=== PATIENT | male | born 1955 | race African-American/Black ===

== ENCOUNTER 2016-12-30 09:47 | Emergency (ER) | payer MEDICARE, OTHER ==
[~2016-12-30] VITALS: Wt 70.2 kg
[~2016-12-30 09:47] MED LIST: ASPI81TA3 PO; THO25 PO
[2016-12-30] MEDS ORDERED: ONDANSETRON 4 MG INJ IV STA (10:02)
[2016-12-30] MEDS ORDERED: morphine 4 MG/ML VIAL IV STA (10:02)
[2016-12-30] MEDS ORDERED: SOD CHLORIDE 0.9% 1,000 ML IV STA (10:02)
[2016-12-30] MEDS ORDERED: CHLORPROMAZINE 25 MG INJ IM ONE (10:30)
[2016-12-30 10:32] LABS: ADD SCAN DIFF NO
[2016-12-30 10:46] LABS: ALBUMIN 4.6 g/dl (3.3-4.9); CHLORIDE 98 mmol/L (97-110); POTASSIUM 4.1 mmol/L (3.5-5.1); SODIUM 147 mmol/L (135-144)
[2016-12-30 10:47] LABS: BASOPHILS % 0.1 % (0.0-2.0); HEMATOCRIT 51.1 % (42.0-52.0); HEMOGLOBIN 16.9 g/dl (14.0-18.0); LYMPHOCYTES # 0.9 10^3/ul (0.8-2.9); LYMPHOCYTES % 8.8 % (15.0-51.0); MEAN CORPUSCULAR HEMOGLOBIN 28.7 pg (29.0-33.0); MEAN CORPUSCULAR HGB CONC 33.1 g/dl (32.0-37.0); MEAN CORPUSCULAR VOLUME 86.8 fl (82.0-101.0); MEAN PLATELET VOLUME 11.5 fl (7.4-10.4); MONOCYTES % 9.6 % (0.0-11.0); NEUTROPHIL # 8.3 10^3/ul (1.6-7.5); NEUTROPHILS % 81.1 % (39.0-77.0); PLATELET COUNT 218 10^3/UL (140-415); RED BLOOD COUNT 5.89 10^6/ul (4.70-6.10); RED CELL DISTRIBUTION WIDTH 14.6 % (11.5-14.5); WHITE BLOOD COUNT 10.2 10^3/ul (4.8-10.8)
[2016-12-30 10:48] LABS: CREATININE 1.42 mg/dl (0.61-1.24)
[2016-12-30 10:49] LABS: ALANINE AMINOTRANSFERASE 21 IU/L (13-69); ALBUMIN/GLOBULIN RATIO 1.12; ALKALINE PHOSPHATASE 82 IU/L (42-121); ANION GAP 19 (8-16); ASPARTATE AMINO TRANSFERASE 33 IU/L (15-46); BILIRUBIN,INDIRECT 0.4 mg/dl (0-1.1); BILIRUBIN,TOTAL 0.4 mg/dl (0.2-1.3); BLOOD UREA NITROGEN 19 mg/dl (7-20); CALCIUM 10.4 mg/dl (8.4-10.2); CARBON DIOXIDE 34 mmol/L (21-31); GLUCOSE 161 mg/dl (70-220); TOTAL PROTEIN 8.7 g/dl (6.1-8.1)
[2016-12-30 11:00] LABS: TROPONIN-I < 0.010 ng/ml (0.00-0.12)
--- NOTE | 2016-12-30 11:28 | RADRPT ---
PROCEDURE: US Abdomen. CLINICAL INDICATION: Abdominal pain. TECHNIQUE: Multiple real-time images were acquired of the patient's abdomen and retroperitoneum ut ilizing a high resolution transducer. COMPARISON: Abdominal sonogram 06/04/2013. FINDINGS: FLAIR identified right upper quadrant measuring 15 cm in length. It has a normal echo texture with normal flow in the hepatic and portal veins. There are multiple gallstones in the gallbladder. The gallbladder wall measured 1.2 mm and is normal. Common bile duct measures 5 mm. Inferior vena cav a is patent. The right kidney measures 11 cm in length. The left kidney is not visualized. No free intraperiton eal fluid is identified. The abdominal aorta is not evaluated. IMPRESSION: 1. Limited abdominal sonogram demonstrating multiple gallstones in the gallbladder. This finding is also noted on the prior CT of August 24, 2015. 2. Normal common bile duct and normal gallbladder wall thickness. RPTAT:AAJJ Physician Bethany Date Time Electronically viewed and signed by Physician Bethany on 12/30/2016 11:28 JOAQUIM/
[2016-12-30] MEDS ORDERED: HYDROmorphONE 1 MG/ML SYG IV STA (12:02)
[2016-12-30] MEDS ORDERED: ONDA4TAB14 PO (12:06)
[2016-12-30] MEDS ORDERED: HYDR-902 PO (12:06)
--- NOTE | 2016-12-30 12:08 | ERD ---
ER Documentation Chief Complaint Date/Time DATE: 12/30/16 TIME: 12:07 Chief Complaint abdominal pain and vomiting for the past 2 days. no diarrhea. HPI Patient is a 61-year-old male with previous cancer who presents saying that he has abdominal pain and "hiccups". He is having pain in the midepigastric area of his stomach. It started a few days ago and was constant and worsening. He has no fevers. He had vomiting but no diarrhea. Upon review of old medical records the patient has multiple visits to the ER for various complaints but review of the emergency department information exchange shows no other visits to our emergency departments. The patient says that his primary doctor is Dr. Lr. ROS All systems reviewed and are negative except as per history of present illness. Medications Home Meds Active Scripts Ondansetron (Ondansetron Odt) 4 Mg Tab.rapdis, 4 MG PO Q6H Y for NAUSEA AND/OR VOMITING, #30 TAB Prov:RICHELLE ULLOA MD 12/30/16 Hydrocodone/Acetaminophen ([place] 10-325 Tablet) 1 Each Tablet, 1 TAB PO Q6H Y for PAIN, #7 TAB Prov:RICHELLE ULLOA MD 12/30/16 Chlorpromazine Hcl* (Thorazine*) 25 Mg Tab, 25 MG PO TID, #6 TAB Prov:RICHELLE ULLOA MD 08/21/15 Reported Medications Aspirin* (Aspirin* Chew) 81 Mg Tab.chew, 81 MG PO DAILY, TAB.CHEW 08/24/15 Allergies Allergies: Coded Allergies: bleomycin (Verified Allergy, Severe, SEVERE SHIVERING, SHALLOW BREATHING , 08/24/15) THIS MEDICATION WAS TAKEND URING FIRST SESSION OF CHEMO PMhx/Soc History of Surgery: Yes (SPLENECTOMY [id number]) Anesthesia Reaction: No Hx Neurological Disorder: No Hx Respiratory Disorders: No Hx Psychiatric Problems: No Hx Miscellaneous Medical Probl: Yes (HODGKIN'S LYMPHOMA ) Hx Alcohol Use: Yes Hx Substance Use: No Hx Tobacco Use: Yes (7-8 CIGARETTES/DAY) Smoking Status: Current some day smoker FmHx Family History: No diabetes Physical Exam Vitals Vital Signs Date Time Temp Pulse Resp B/P Pulse Ox O2 Delivery O2 Flow Rate FiO2 12/30/16 12:28 98.4 85 16 138/86 100 Room Air 12/30/16 11:30 98.4 84 16 135/79 100 Room Air 12/30/16 09:53 98.4 80 21 129/85 99 Physical Exam Const: Mild distress secondary to pain, hiccups Head: Atraumatic Eyes: Normal Conjunctiva ENT: Normal External Ears, Nose and Mouth. Neck: Full range of motion..~ No meningismus. Resp: Clear to auscultation bilaterally Cardio: Regular rate and rhythm, no murmurs Abd: Soft, epigastric pain without rebound or guarding Skin: No petechiae or rashes Back: No midline or flank tenderness Ext: No cyanosis, or edema Neur: Awake and alert Psych: Normal Mood and Affect Result Diagram: 12/30/16 1030 12/30/16 1030 Results 24 hrs Laboratory Tests Test 12/30/16 10:30 Alanine Aminotransferase (ALT/SGPT) 21IU/L Albumin 4.6g/dl Albumin/Globulin Ratio 1.12 Alkaline Phosphatase 82IU/L Anion Gap 19 Aspartate Amino Transf (AST/SGOT) 33IU/L Basophils # 0.010^3/ul Basophils % 0.1% Blood Urea Nitrogen 19mg/dl Calcium Level 10.4mg/dl Carbon Dioxide Level 34mmol/L Chloride Level 98mmol/L Creatinine 1.42mg/dl Direct Bilirubin 0.00mg/dl Eosinophils # 0.010^3/ul Eosinophils % 0.0% Globulin 4.10g/dl Glucose Level 161mg/dl Hematocrit 51.1% Hemoglobin 16.9g/dl Indirect Bilirubin 0.4mg/dl Lipase 629U/L Lymphocytes # 0.910^3/ul Lymphocytes % 8.8% Mean Corpuscular Hemoglobin 28.7pg Mean Corpuscular Hemoglobin Concent 33.1g/dl Mean Corpuscular Volume 86.8fl Mean Platelet Volume 11.5fl Monocytes # 1.010^3/ul Monocytes % 9.6% Neutrophils # 8.310^3/ul Neutrophils % 81.1% Nucleated Red Blood Cells # 0.010^3/ul Nucleated Red Blood Cells % 0.0/100WBC Platelet Count 20706^3/UL Potassium Level 4.1mmol/L Red Blood Count 5.8910^6/ul Red Cell Distribution Width 14.6% Sodium Level 147mmol/L Total Bilirubin 0.4mg/dl Total Protein 8.7g/dl Troponin I < 0.010ng/ml White Blood Count 10.210^3/ul Current Medications Medications (Trade) Dose Ordered Sig/Servando Route PRN Reason Start Time Stop Time Status Last Admin Dose Admin Sodium Chloride (NS) 1,000 ml @ 1,000 mls/hr Q1H STAT IV 12/30/16 10:02 12/30/16 11:01 DC 12/30/16 10:16 Morphine Sulfate (morphine) 4 mg ONCE STAT IV 12/30/16 10:02 12/30/16 10:03 DC 12/30/16 10:16 Ondansetron HCl (Zofran Inj) 4 mg ONCE STAT IV 12/30/16 10:02 12/30/16 10:03 DC 12/30/16 10:16 Chlorpromazine (Thorazine) 25 mg ONCE ONCE IM 12/30/16 10:30 12/30/16 10:31 DC 12/30/16 11:00 Hydromorphone HCl (Dilaudid) 1 mg ONCE STAT IV 12/30/16 12:02 12/30/16 12:03 DC 12/30/16 12:10 Procedures/MDM EKG read by me: Rate/Rhythm: Regular rate and rhythm at a rate of 65 Intervals: Normal Impression: No evidence of ischemia or arrhythmia Ultrasound shows gallstones but no cholecystitis or dilated common bile duct per radiology. Smoking Cessation Therapy: Pt. was lectured for greater than 3 minutes on the health risks of continued smoking and the benefits of cessation. Patient is a 61-year-old male who presents with abdominal pain. His lipase was 600. His ultrasound shows gallstones but no signs of gallbladder infection or common bile duct dilatation. I doubt cholecystitis, appendicitis, bowel obstruction, or other serious etiology. I discussed admission with the patient but he would prefer to go home. He will be given [place] and Zofran. He can return for any worsening symptoms. Departure Diagnosis: Primary Impression: Hiccups Additional Impression: Abdominal pain Abdominal location: unspecified location Qualified Code: R10.9 - Abdominal pain, unspecified location Condition: Fair Patient Instructions: Abdominal Pain Additional Instructions: FOLLOW UP WITH YOUR PRIMARY CARE PHYSICIAN TOMORROW.Return to this facility if you are not improving as expected. RICHELLE ULLOA MD Dec 30, 2016 12:08
[2016-12-30 12:28] VITALS: BP 138/86; PULSE 85; RESP 16; TEMP 98.4
== END 2016-12-30 12:51 | disposition home or self-care (01) ==
LOC: E/R 09:47
DX: R06.6 Hiccough (principal); F17.210 Nicotine dependence, cigarettes, uncomplicated; R11.10 Vomiting, unspecified; Z79.82 Long term (current) use of aspirin
CPT/HCPCS: 36415; 76705; 80053; 83690; 84484; 85025; 93005; 96372; 96374; 96375; 99285; J1170; J2270; J2405; J3230; J7030

== ENCOUNTER 2016-12-31 10:33 | Inpatient (IN) | payer MEDICARE, OTHER ==
[~2016-12-31] VITALS: Ht 177.8 cm; Wt 62.6 kg
[~2016-12-31 10:33] MED LIST changes: +HYDR-902 PO; +ONDA4TAB14 PO
[2016-12-31] MEDS ORDERED: SOD CHLORIDE 0.9% 1,000 ML IV STA (11:10)
[2016-12-31] MEDS ORDERED: HYDROmorphONE 1 MG/ML SYG IV STA (11:10)
[2016-12-31] MEDS ORDERED: ONDANSETRON 4 MG INJ IV STA (11:10)
[2016-12-31] MEDS ORDERED: CHLORPROMAZINE 25 MG INJ IM ONE (11:30)
[2016-12-31 11:50] LABS: ADD SCAN DIFF NO
[2016-12-31 11:57] LABS: BASOPHILS % 0.3 % (0.0-2.0); EOSINOPHILS % 0.2 % (0.0-7.0); HEMATOCRIT 55.5 % (42.0-52.0); HEMOGLOBIN 18.4 g/dl (14.0-18.0); LYMPHOCYTES # 1.3 10^3/ul (0.8-2.9); MEAN CORPUSCULAR HGB CONC 33.2 g/dl (32.0-37.0); MEAN CORPUSCULAR VOLUME 87.5 fl (82.0-101.0); MEAN PLATELET VOLUME 12.1 fl (7.4-10.4); MONOCYTES % 11.8 % (0.0-11.0); NEUTROPHIL # 6.3 10^3/ul (1.6-7.5); NEUTROPHILS % 72.4 % (39.0-77.0); PLATELET COUNT 211 10^3/UL (140-415); RED BLOOD COUNT 6.34 10^6/ul (4.70-6.10); RED CELL DISTRIBUTION WIDTH 15.6 % (11.5-14.5); WHITE BLOOD COUNT 8.8 10^3/ul (4.8-10.8)
[2016-12-31] MEDS ORDERED: ACETAMINOPHEN 325 MG TAB PO PRN (12:00)
[2016-12-31] MEDS ORDERED: ONDANSETRON 4 MG INJ IV PRN ×2 (12:00→15:30)
[2016-12-31 12:09] LABS: POTASSIUM 4.8 mmol/L (3.5-5.1)
[2016-12-31 12:10] LABS: CREATININE 1.53 mg/dl (0.61-1.24)
[2016-12-31 12:11] LABS: ALBUMIN/GLOBULIN RATIO 1.02; BILIRUBIN,INDIRECT 0.3 mg/dl (0-1.1); BILIRUBIN,TOTAL 0.3 mg/dl (0.2-1.3); CALCIUM 10.6 mg/dl (8.4-10.2); TOTAL PROTEIN 9.9 g/dl (6.1-8.1)
--- NOTE | 2016-12-31 12:43 | ERA ---
ER Documentation Chief Complaint Date/Time DATE: 12/31/16 TIME: 12:41 Chief Complaint NAUSEA /VOMITING /ABD PAIN X 3 DAYS HPI Patient is a 61-year-old male with history of pancreatitis who presents with abdominal pain and epigastric pain. He also has hiccups. He has vomiting. He has no fevers. I saw him yesterday for the same complaint and his lipase yesterday was 600. We spoke about admission at that time and he wanted to go home so he was discharged. However he said "I should not have gone home I should have stayed and been admitted". The pain is sharp in nature and constant. ROS All systems reviewed and are negative except as per history of present illness. Medications Home Meds Active Scripts Ondansetron (Ondansetron Odt) 4 Mg Tab.rapdis, 4 MG PO Q6H Y for NAUSEA AND/OR VOMITING, #30 TAB Prov:RICHELLE ULLOA MD 12/30/16 Hydrocodone/Acetaminophen ([place] 10-325 Tablet) 1 Each Tablet, 1 TAB PO Q6H Y for PAIN, #7 TAB Prov:RICHELLE ULLOA MD 12/30/16 Chlorpromazine Hcl* (Thorazine*) 25 Mg Tab, 25 MG PO TID, #6 TAB Prov:RICHELLE ULLOA MD 08/21/15 Reported Medications Aspirin* (Aspirin* Chew) 81 Mg Tab.chew, 81 MG PO DAILY, TAB.CHEW 08/24/15 Allergies Allergies: Coded Allergies: bleomycin (Verified Allergy, Severe, SEVERE SHIVERING, SHALLOW BREATHING , 08/24/15) THIS MEDICATION WAS TAKEND URING FIRST SESSION OF CHEMO PMhx/Soc History of Surgery: Yes (SPLENECTOMY [id number]) Anesthesia Reaction: No Hx Neurological Disorder: No Hx Respiratory Disorders: No Hx Psychiatric Problems: No Hx Miscellaneous Medical Probl: Yes (HODGKIN'S LYMPHOMA ) Hx Alcohol Use: Yes Hx Substance Use: No Hx Tobacco Use: Yes (7-8 CIGARETTES/DAY) Smoking Status: Smoker,current status unk FmHx Family History: No diabetes Physical Exam Vitals Vital Signs Date Time Temp Pulse Resp B/P Pulse Ox O2 Delivery O2 Flow Rate FiO2 12/31/16 10:45 98.5 58 18 144/85 98 Physical Exam Const: Moderate distress secondary to pain Head: Atraumatic Eyes: Normal Conjunctiva ENT: Normal External Ears, Nose and Mouth. Neck: Full range of motion..~ No meningismus. Resp: Clear to auscultation bilaterally Cardio: Regular rate and rhythm, no murmurs Abd: Soft, epigastric tenderness to palpation without rebound or guarding Skin: No petechiae or rashes Back: No midline or flank tenderness Ext: No cyanosis, or edema Neur: Awake and alert Psych: Normal Mood and Affect Result Diagram: 12/31/16 1105 12/31/16 1105 Results 24 hrs Laboratory Tests Test 12/31/16 11:05 Alanine Aminotransferase (ALT/SGPT) 28IU/L Albumin 5.0g/dl Albumin/Globulin Ratio 1.02 Alkaline Phosphatase 104IU/L Anion Gap 24 Aspartate Amino Transf (AST/SGOT) 34IU/L Basophils # 0.010^3/ul Basophils % 0.3% Blood Urea Nitrogen 23mg/dl Calcium Level 10.6mg/dl Carbon Dioxide Level 36mmol/L Chloride Level 94mmol/L Creatinine 1.53mg/dl Direct Bilirubin 0.00mg/dl Eosinophils # 0.010^3/ul Eosinophils % 0.2% Globulin 4.90g/dl Glucose Level 134mg/dl Hematocrit 55.5% Hemoglobin 18.4g/dl Indirect Bilirubin 0.3mg/dl Lipase 364U/L Lymphocytes # 1.310^3/ul Lymphocytes % 15.0% Mean Corpuscular Hemoglobin 29.0pg Mean Corpuscular Hemoglobin Concent 33.2g/dl Mean Corpuscular Volume 87.5fl Mean Platelet Volume 12.1fl Monocytes # 1.010^3/ul Monocytes % 11.8% Neutrophils # 6.310^3/ul Neutrophils % 72.4% Nucleated Red Blood Cells # 0.010^3/ul Nucleated Red Blood Cells % 0.0/100WBC Platelet Count 44673^3/UL Potassium Level 4.8mmol/L Red Blood Count 6.3410^6/ul Red Cell Distribution Width 15.6% Sodium Level 149mmol/L Total Bilirubin 0.3mg/dl Total Protein 9.9g/dl White Blood Count 8.810^3/ul Current Medications Medications (Trade) Dose Ordered Sig/Servando Route PRN Reason Start Time Stop Time Status Last Admin Dose Admin Sodium Chloride (NS) 1,000 ml @ 1,000 mls/hr Q1H STAT IV 12/31/16 11:10 12/31/16 12:09 DC 12/31/16 11:34 Hydromorphone HCl (Dilaudid) 1 mg ONCE STAT IV 12/31/16 11:10 12/31/16 11:12 DC 12/31/16 11:34 Ondansetron HCl (Zofran Inj) 4 mg ONCE STAT IV 12/31/16 11:10 12/31/16 11:12 DC 12/31/16 11:34 Chlorpromazine (Thorazine) 25 mg ONCE ONCE IM 12/31/16 11:30 12/31/16 11:31 DC 12/31/16 11:55 Ondansetron HCl (Zofran Inj) 4 mg BRIDGE ORDER PRN IV NAUSEA AND/OR VOMITING 12/31/16 12:00 01/01/17 11:59 Acetaminophen (Tylenol Tab) 650 mg ER BRIDGE PRN PO MILD PAIN/FEVER 12/31/16 12:00 01/01/17 11:59 Procedures/MDM Patient is a 61-year-old male with pancreatitis who presents with acute abdominal pain. The patient has slightly elevated lipase of over 300 and his symptoms are consistent with acute pancreatitis. The patient will be given Dilaudid, Zofran, and Thorazine. He will be admitted to Dr. Lr who is the primary doctor. The patient will be admitted to a medical surgical bed. He has failed outpatient treatment at this time. I do believe that inpatient admission would be appropriate given the fact that he has not been able to be managed at an outpatient level of care. Departure Diagnosis: Primary Impression: Abdominal pain Qualified Code: R10.13 - Epigastric pain Condition: RICHELLE Leavitt MD Dec 31, 2016 12:42
[2016-12-31 14:24] VITALS: Ht 177.8 cm; Wt 62.6 kg
[2016-12-31 14:54] VITALS: BP_SYST 163; BP_SYST 165; BP_DIAS 82; PULSE 52; RESP 18
[2016-12-31] MEDS: HYDROmorphONE 1 MG/ML SYG IV PRN ×2 (15:38→20:15)
[2016-12-31] MEDS: SOD CHLORIDE 0.45% 1,000 ML IV SCH (15:38)
[2016-12-31] MEDS: VALSARTAN 80 MG TAB PO SCH (15:45)
[2016-12-31 20:03] VITALS: BP 152/74; RESP 21
[2016-12-31 20:30] VITALS: PULSE 56
[2016-12-31] MEDS: CHLORPROMAZINE 25 MG TAB PO PRN (22:41)
[2017-01-01] MEDS: SOD CHLORIDE 0.45% 1,000 ML IV SCH ×5 (00:18→21:11)
[2017-01-01] MEDS: HYDROmorphONE 1 MG/ML SYG IV PRN ×6 (00:18→21:12)
[2017-01-01] MEDS: CHLORPROMAZINE 25 MG TAB PO PRN ×2 (05:10→21:16)
[2017-01-01 07:33] VITALS: BP 124/67; RESP 18
[2017-01-01] MEDS: VALSARTAN 80 MG TAB PO SCH (08:39)
[2017-01-01] MEDS ORDERED: hydrALAzine 20 MG INJ IV PRN (09:00)
[2017-01-01] MEDS: PANTOPRAZOLE 40 MG INJ IV SCH (10:26)
[2017-01-01] MEDS ORDERED: CHLORPROMAZINE 25 MG INJ IM PRN (10:30)
--- NOTE | 2017-01-01 10:41 | HP ---
DATE OF ADMISSION: 12/31/2016 CHIEF COMPLAINT: Abdominal pain and hiccups. HISTORY OF PRESENT ILLNESS: The patient is a 61-year-old gentleman with history of hypertension, re current pancreatitis, Hodgkin's disease status post splenectomy and chemotherapy, history of esophag opleural fistula. The patient came to the ER with upper abdominal pain, vomiting and hiccups. The patient did not have any fever or chills, no reported chest pain, shortness of breath. The patient also had nausea. The patient did not have any leg pain. No reported hematemesis or melena. No his tory of headache, dizziness, syncope. No history of cough. The patient did not have any abdominal distention. The patient was seen in the ER and reported the pain was moderate to severe in upper ab domen and was constant and was progressively getting worse. The patient in fact was seen in the ER on 12/30/2016 and was discharged. Upper abdominal ultrasound was negative. The patient's lipase w as 600. The patient at that time wanted to go home on symptomatic treatment including Narcan and Zo bernard; however, he returned to ER on the to December with similar symptoms and lab evaluation r evealed lipase of 364. Liver enzymes were normal. The patient had a BUN of 23, creatinine 1.5 up f rom 19 and 1.4 the day before. The patient is being admitted for further evaluation and management. REVIEW OF SYSTEMS: A total of 10 systems were reviewed and all other pertinent positive and negativ e findings have been described in the HPI. PAST MEDICAL HISTORY: As stated above. 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 The patient's initial diagnosis of Hodgkin's disease was in 1995 when he presented with left parotid area swelling which was subsequently biopsi ed and the patient was diagnosed with Hodgkin's lymphoma. The patient subsequently underwent chemot herapy and was found to be ALLERGIC TO BLEOMYCIN. Questionable history of atrial fibrillation in past. The patient was seen by . PAST SURGICAL HISTORY: The patient has history of loculated left-sided pleural effusion and empyema status post VATS and total pulmonary decortication by Dr. Katz. History of ERCP, sphincteroto my and placement of a pancreatic duct stent and common bile duct stent in October 2009. ALLERGIES: BLEOMYCIN. SOCIAL HISTORY: The patient works for [employer]. No smoking. The patient has history of drinking channing in the past but quit in 2008. PHYSICAL EXAMINATION: GENERAL: The patient is conscious, awake, alert. VITAL SIGNS: Temperature 98.5, pulse 58, respirations 18, blood pressure 144/85, O2 saturation 98% on room air. HEENT: Atraumatic, normocephalic. Conjunctivae and lids normal. Oropharynx clear. NECK: Supple. No mass, no thyromegaly. LUNGS: Clear to auscultation. CARDIOVASCULAR: S1, S2 normal. Regular rate and rhythm. No murmur, gallop, or rub. ABDOMEN: Soft, nondistended. Upper abdominal tenderness present. No guarding or rigidity. Bowel sounds present. EXTREMITIES: No leg edema. NEUROLOGIC: The patient is awake, alert, fairly oriented with no gross focal deficit. IMPRESSION: 1. Gallstone pancreatitis. The patient's ultrasound of the gallbladder did reveal multiple gallsto josh in the gallbladder. 2. Hodgkin's lymphoma, status post splenectomy and video-assisted thoracoscopic surgery and total p ulmonary decortication for loculated empyema back in 2009. 3. Chronic kidney disease. The patient's creatinine is close to baseline. Back in 2014 the patien t's creatinine was .6. 4. Mild hypercalcemia. Calcium 10.6. 5. History of hypertension. PLAN: the patient will be admitted on medical floor. The patient is not vomiting and was feeling h ungry, therefore clear liquid diet was started. The patient will be given IV fluids, IV Protonix an d symptomatic treatment. Will continue to monitor his electrolytes and renal function. The patient does not want to see any leadership development consultant including animal care supervisor or even a GI. Dr. Lr did call Dr. Bhavik rodriguez. The patient was supposed to have labs today, but refused. Continue supportive care and sympt omatic treatment including Thorazine for hiccups. In view of history of recurrent pancreatitis, the patient was advised to see a surgeon for elective laparoscopic cholecystectomy. Will continue to m onitor calcium level. Again, the patient does not want to see any leadership development consultant at this time. Dictated By: TRENA SHORT/TRACEE Conf#: [id number] [facility]#: [id number]
--- NOTE | 2017-01-01 10:57 | CONS ---
Date/Time of Note Date/Time of Note DATE: 01/01/17 TIME: 10:37 Assessment/Plan Assessment/Plan Additional Assessment/Plan its not unususal to to have chronic pancreatitis w hiccups he had 2 doses of thorozine w//o a response I would continue w thorozine in current doses cont ppi cont hydration will follow will check hh and lytes and recheck lipase Consultation Date/Type/Reason Admit Date/Time Dec 31, 2016 at 11:52 Reason for Consultation hiccups Hx of Present Illness this is a 61 yo male w hx chronic pancreatitis admitted w hiccups and mildly elevated lipase he denies abd pain,rad to back he did have greenemesis x 2 Thorazine given in ER did not help pt came back to ER and was admitted denies hemetemesis melena apainrad to bck lipase 460~ u/s gb stones mildly dilated pancreatic duct he deneies etoh denies drug use or abd dtrauma serum lipids pending exaam: Heent mild bitemporal wasting JUDSON chest Clear [employer] ABD soft mildly tender no masses ext no edema Social History Smoking Status: Current every day smoker Exam/Review of Systems Vital Signs Vitals Vital Signs Date Time Temp Pulse Resp B/P Pulse Ox O2 Delivery O2 Flow Rate FiO2 01/01/17 07:33 97.5 61 18 124/67 98 12/31/16 14:54 Room Air Intake and Output 12/31/16 12/31/16 01/01/17 15:00 23:00 07:00 Intake Total 100 ml 2920 ml Balance 100 ml 2920 ml Results Result Diagram: 12/31/16 1105 12/31/16 1105 Results 24 hrs Laboratory Tests Test 12/31/16 11:05 Alanine Aminotransferase (ALT/SGPT) 28 Albumin 5.0 H Albumin/Globulin Ratio 1.02 Alkaline Phosphatase 104 Anion Gap 24 H Aspartate Amino Transf (AST/SGOT) 34 Basophils # 0.0 Basophils % 0.3 Blood Urea Nitrogen 23 H Calcium Level 10.6 H Carbon Dioxide Level 36 H Chloride Level 94 L Creatinine 1.53 H Direct Bilirubin 0.00 Eosinophils # 0.0 Eosinophils % 0.2 Globulin 4.90 H Glucose Level 134 Hematocrit 55.5 H Hemoglobin 18.4 H Indirect Bilirubin 0.3 Lipase 364 H Lymphocytes # 1.3 Lymphocytes % 15.0 Mean Corpuscular Hemoglobin 29.0 Mean Corpuscular Hemoglobin Concent 33.2 Mean Corpuscular Volume 87.5 Mean Platelet Volume 12.1 H Monocytes # 1.0 H Monocytes % 11.8 H Neutrophils # 6.3 Neutrophils % 72.4 Nucleated Red Blood Cells # 0.0 Nucleated Red Blood Cells % 0.0 Platelet Count 211 Potassium Level 4.8 Red Blood Count 6.34 H Red Cell Distribution Width 15.6 H Sodium Level 149 H Total Bilirubin 0.3 Total Protein 9.9 H White Blood Count 8.8 Medications Medications Current Medications Hydromorphone HCl (Dilaudid) 1 mg Q4H PRN IV PAIN Last administered on 08:39; Admin Dose 1 MG; Start 12/31/16 at 15:30 Chlorpromazine (Thorazine) 25 mg Q6H PRN PO hiccups Last administered on 05:10; Admin Dose 25 MG; Start 12/31/16 at 15:30 Ondansetron HCl 4 mg 4 mg Q4H PRN IV NAUSEA AND/OR VOMITING; Start 12/31/16 at 15:30 Sodium Chloride (1/2 NS) 1,000 ml @ 200 mls/hr Q5H IV Last administered on 10:29; Admin Dose 200 MLS/HR; Start 12/31/16 at 15:30 Pantoprazole (Protonix Iv) 40 mg DAILY@06 IV Last administered on 01/01/17 10: 26; Admin Dose 40 MG; Start 01/01/17 at 09:30 Hydralazine HCl (Apresoline) 10 mg Q4H PRN IV SBP>160, DBP >95; Start 01/01/17 at 09:00 Chlorpromazine (Thorazine) 25 mg Q6 PRN IM HICCUPS; Start 01/01/17 at 10:30; Status DEBI PÉREZ MD Jan 01, 2017 10:47
[2017-01-01 16:00] VITALS: BP 147/83; PULSE 59; RESP 18
[2017-01-01 22:24] VITALS: BP 120/70; RESP 20
[2017-01-02] MEDS: HYDROmorphONE 1 MG/ML SYG IV PRN ×6 (01:37→23:09)
[2017-01-02] MEDS: SOD CHLORIDE 0.45% 1,000 ML IV SCH ×2 (01:39→05:46)
[2017-01-02 05:29] LABS: ADD SCAN DIFF NO
[2017-01-02 05:38] LABS: BASOPHILS % 0.4 % (0.0-2.0); EOSINOPHILS # 0.1 10^3/ul (0.0-0.5); EOSINOPHILS % 0.9 % (0.0-7.0); HEMATOCRIT 44.8 % (42.0-52.0); HEMOGLOBIN 14.8 g/dl (14.0-18.0); LYMPHOCYTES # 1.5 10^3/ul (0.8-2.9); LYMPHOCYTES % 16.7 % (15.0-51.0); MEAN CORPUSCULAR HEMOGLOBIN 29.1 pg (29.0-33.0); MEAN CORPUSCULAR VOLUME 88.2 fl (82.0-101.0); MEAN PLATELET VOLUME 11.6 fl (7.4-10.4); MONOCYTE # 1.1 10^3/ul (0.3-0.9); MONOCYTES % 12.6 % (0.0-11.0); NEUTROPHIL # 6.2 10^3/ul (1.6-7.5); PLATELET COUNT 193 10^3/UL (140-415); RED BLOOD COUNT 5.08 10^6/ul (4.70-6.10); RED CELL DISTRIBUTION WIDTH 14.4 % (11.5-14.5)
[2017-01-02] MEDS: PANTOPRAZOLE 40 MG INJ IV SCH (05:41)
[2017-01-02] MEDS: CHLORPROMAZINE 25 MG TAB PO PRN ×2 (05:42→15:36)
[2017-01-02 05:52] LABS: ALBUMIN 3.2 g/dl (3.3-4.9)
[2017-01-02 05:53] LABS: POTASSIUM 3.3 mmol/L (3.5-5.1)
[2017-01-02 05:55] LABS: ALBUMIN/GLOBULIN RATIO 1.03; BILIRUBIN,INDIRECT 0.7 mg/dl (0-1.1); BILIRUBIN,TOTAL 0.7 mg/dl (0.2-1.3); CREATININE 1.15 mg/dl (0.61-1.24); TOTAL PROTEIN 6.3 g/dl (6.1-8.1)
[2017-01-02 05:56] LABS: CALCIUM 7.6 mg/dl (8.4-10.2)
[2017-01-02 09:37] VITALS: BP 118/72; RESP 18
[2017-01-02] MEDS: D5W-0.45 NACL + KCL 30 MEQ 1,000 ML IV SCH ×2 (12:19→23:12)
--- NOTE | 2017-01-02 13:44 | PN ---
DATE: 01/02/2017 SUBJECTIVE: Follow up on hypertension, acute pancreatitis, gallstone with history of alcohol abuse in the past, and acute kidney injury. The patient reported improvement in the pain; however, contin ues to have intermittent hiccups. The patient has required 2 doses of IV Dilaudid since last midnig ht. No reported fever or chills. No reported vomiting. PHYSICAL EXAMINATION: GENERAL: The patient is conscious, awake, alert. VITAL SIGNS: Temperature 98.3, pulse is 52, respirations 18, blood pressure 118/72, O2 saturation 1 00% on room air. HEENT: Conjunctivae and lids normal. Oropharynx clear. NECK: No mass, no JVD. CHEST: Fairly clear. No use of accessory muscles. CARDIOVASCULAR: S1, S2 normal. No murmur. ABDOMEN: Soft, nondistended. Diminished tenderness. No guarding or rigidity. Bowel sounds presen t. EXTREMITIES: No leg edema. NEUROLOGIC: The patient is awake, alert, fairly oriented with no gross focal deficit. LABORATORY DATA: WBC 9, hemoglobin 14.8, platelets 193. Sodium 134, potassium 3.3, BUN 15, creatin ine 1.1 down from 1.5. IMPRESSION: 1. Recurrent pancreatitis related to gallstones versus a history of alcohol abuse in the past, impr oving. Will advance diet today and will decrease IV fluid rate. Acute kidney injury has significan tly improved. Patient was offered a surgical consult for his gallstone; however, he refuses to see a surgeon at this time, and I recommended him to get a surgical consult as an outpatient from his PM D, . 2. Hypertension. Patient's blood pressure well controlled. The patient remains off antihypertensi ves. 3. Acute kidney injury, improved. 4. Hypokalemia. Will replace potassium and do followup labs in the morning. If patient is able to tolerate diet and has no other any acute event, he will be discharged home tomorrow. Lipase this m orning is down to 85. All liver enzymes are within normal limits with AST 31, ALT 25, and alkaline p hosphatase 66. Dictated By: TRENA SHORT/TRACEE Conf#: [id number] DID#: [id number]
--- NOTE | 2017-01-02 14:06 | CONS ---
Date/Time of Note Date/Time of Note DATE: 01/02/17 TIME: 13:59 Assessment/Plan Assessment/Plan Chief Complaint/Hosp Course this is a 61 yo male w hx chronic pancreatitis admitted w hiccups and mildly elevated lipase he denies abd pain,rad to back he did have greenemesis x 2 Thorazine given in ER did not help pt came back to ER and was admitted denies hemetemesis melena apainrad to bck lipase 460~ u/s gb stones mildly dilated pancreatic duct he deneies etoh denies drug use or abd dtrauma serum lipids pending Problems: Additional Assessment/Plan hiccups gone no abd pain lipase now nl From GI standpoint can be discharges Cont'd Hospitalization Reason: will see PRN thanks Consultation Date/Type/Reason Admit Date/Time Dec 31, 2016 at 11:52 Initial Consult Date 24 HR Interval Summary Free Text/Dictation no abd pain Constitutional: no complaints Exam/Review of Systems Vital Signs Vitals Vital Signs Date Time Temp Pulse Resp B/P Pulse Ox O2 Delivery O2 Flow Rate FiO2 01/02/17 09:37 98.3 52 18 118/72 100 12/31/16 14:54 Room Air Intake and Output 01/01/17 01/01/17 01/02/17 15:00 23:00 07:00 Intake Total 3780 ml 2150 ml Balance 3780 ml 2150 ml Exam Eyes: PERRL, No icteric Cardiovascular: nl pulses, regular rate and rhythm Gastrointestinal: non-tender, soft Results Result Diagram: 01/02/17 0415 01/02/17 0415 Results 24 hrs Laboratory Tests Test 01/02/17 04:15 Alanine Aminotransferase (ALT/SGPT) 25 Albumin 3.2 #L Albumin/Globulin Ratio 1.03 Alkaline Phosphatase 66 Amylase Level 102 Anion Gap 13 # Aspartate Amino Transf (AST/SGOT) 31 Basophils # 0.0 Basophils % 0.4 Blood Urea Nitrogen 15 Calcium Level 7.6 L Carbon Dioxide Level 30 Chloride Level 94 L Creatinine 1.15 Direct Bilirubin 0.00 Eosinophils # 0.1 Eosinophils % 0.9 Globulin 3.10 Glucose Level 95 Hematocrit 44.8 Hemoglobin 14.8 Indirect Bilirubin 0.7 Lipase 85 Lymphocytes # 1.5 Lymphocytes % 16.7 Mean Corpuscular Hemoglobin 29.1 Mean Corpuscular Hemoglobin Concent 33.0 Mean Corpuscular Volume 88.2 Mean Platelet Volume 11.6 H Monocytes # 1.1 H Monocytes % 12.6 H Neutrophils # 6.2 Neutrophils % 69.0 Nucleated Red Blood Cells # 0.0 Nucleated Red Blood Cells % 0.0 Platelet Count 193 Potassium Level 3.3 L Red Blood Count 5.08 Red Cell Distribution Width 14.4 Sodium Level 134 #L Total Bilirubin 0.7 Total Protein 6.3 # White Blood Count 9.0 Medications Medications Current Medications Hydromorphone HCl (Dilaudid) 1 mg Q4H PRN IV PAIN Last administered on 10:00; Admin Dose 1 MG; Start 12/31/16 at 15:30 Chlorpromazine (Thorazine) 25 mg Q6H PRN PO hiccups Last administered on 05:42; Admin Dose 25 MG; Start 12/31/16 at 15:30 Ondansetron HCl (Zofran Inj) 4 mg Q4H PRN IV NAUSEA AND/OR VOMITING; Start at 15:30 Pantoprazole (Protonix Iv) 40 mg DAILY@06 IV Last administered on 01/02/17 05: 41; Admin Dose 40 MG; Start 01/01/17 at 09:30 Hydralazine HCl (Apresoline) 10 mg Q4H PRN IV SBP>160, DBP >95; Start 01/01/17 at 09:00 Chlorpromazine 25 mg 25 mg Q6 PRN IM HICCUPS Last administered on 01/01/17 14: 38; Admin Dose 25 MG; Start 01/01/17 at 10:30 Potassium Chloride/Dextrose/ Sod Cl (D5-1/2ns + KCl 30 Meq) 1,000 ml @ 100 mls/ hr Q10H IV Last administered on 01/02/17 12:19; Admin Dose 100 MLS/HR; Start 01/02/17 at 10:30 DEBI GARCIA MD Jan 02, 2017 14:06
[2017-01-02 20:00] VITALS: BP 134/74; RESP 19
[2017-01-03] MEDS: CHLORPROMAZINE 25 MG TAB PO PRN ×2 (01:01→12:47)
[2017-01-03] MEDS: HYDROmorphONE 1 MG/ML SYG IV PRN ×3 (03:15→11:12)
[2017-01-03] MEDS: PANTOPRAZOLE 40 MG INJ IV SCH (05:18)
[2017-01-03 06:01] LABS: POTASSIUM 3.7 mmol/L (3.5-5.1)
[2017-01-03 06:04] LABS: CALCIUM 7.4 mg/dl (8.4-10.2); CREATININE 0.99 mg/dl (0.61-1.24)
[2017-01-03 08:22] VITALS: BP 119/71; RESP 18
[2017-01-03] MEDS: D5W-0.45 NACL + KCL 30 MEQ 1,000 ML IV SCH (09:28)
--- NOTE | 2017-01-03 12:50 | PDOCDIS ---
Discharge Instructions CONDITION Patient Condition: Good HOME CARE INSTRUCTIONS: Diet Instructions: Low Fat /CholesterolSpecial Diet: Regular ACTIVITY: Activity Restrictions: No Restrictions FOLLOW UP/APPOINTMENTS Appointments Dr. HALL in 1-2 weeks With his oncologist as before TRENA LIZARRAGA MD Jan 03, 2017 12:49
--- NOTE | 2017-01-04 00:39 | DS ---
DATE OF ADMISSION: 12/31/2016 DATE OF DISCHARGE: 01/03/2017 DISCHARGE DIAGNOSES: 1. Recurrent pancreatitis due to possible gallstone versus a history of alcohol abuse in the past l eading to alcoholic pancreatitis. 2. Hodgkin lymphoma. 3. Chronic kidney disease. Creatinine improved from 1.42 upon admission down to 0.9. Most likely, patient has only acute kidney injury from recurrent vomiting due to acute pancreatitis. DISCHARGE MEDICATIONS: The patient prior to admission was taking baby aspirin and [place]. I have ad vised him to continue those medications. 1. Aspirin 81 mg once a day. 2. [place] 10/325 q.6 p.r.n. which was recently dispensed from ER. FOLLOWUP: The patient to follow up with Dr. Lr in 1 to 2 weeks. The patient was also recommended to request a general surgery referral for possible laparoscopic cholecystectomy. The patient to fol low up with his oncologist as before. CONSULTATION OBTAINED: Dr. Ridley PROCEDURE DONE: Ultrasound of the abdomen. REASON FOR ADMISSION: The patient is a 61-year-old gentleman with a history of pancreatitis in the past; history of alcohol abuse; history of hypertension; history of Hodgkin lymphoma, status post sp lenectomy and chemotherapy; history of VATS due to loculated pleural effusion. The patient came to ER with abdominal pain and vomiting, also had hiccups. The patient was started on IV fluid and was initially kept n.p.o., then subsequently started on clear liquid diet. The patient's initial lipase was 629. The patient was also given IV Dilaudid for pain control. The patient was seen by Dr. Leticia field from GI standpoint. Meanwhile, the patient had a gallbladder ultrasound which revealed multip le gallstones. Common bile duct, however, was normal. Gallbladder wall thickness was normal. The patient slowly improved. The patient's diet was advanced to regular diet, and the patient has been able to tolerate diet. Abdominal pain has improved, and the patient does not have any vomiting. No reported chest pain or shortness of breath. PHYSICAL EXAMINATION: VITAL SIGNS THIS MORNING: Blood pressure 119/71, pulse 95, respirations 18, temperature 98.2, O2 sa turation 100% on room air. HEENT: No eye discharge, redness. Oropharynx clear. NECK: Supple. No mass, no thyromegaly. CHEST: Fairly clear. No use of accessory muscles. CARDIOVASCULAR: S1, S2 normal. No murmur. ABDOMEN: Soft, nondistended, nontender. EXTREMITIES: No leg edema. NEUROLOGIC: The patient is awake, alert with no gross focal deficit. LABORATORIES DONE THIS MORNING: Sodium 136, potassium 3.7, BUN 11, creatinine 0.9. CONDITION ON DISCHARGE: Stable. DIET: Low-fat diet. Dictated By: TRENA SHORT/TRACEE Conf#: [id number] DID#: [id number]
== END 2017-01-03 13:11 | disposition home or self-care (01) | DRG 439 ==
LOC: E/R 10:33 → PP2 11:52
PROVIDERS: ADMIT Internal Medicine; ATTEND Internal Medicine
DX: K85.10 Biliary acute pancreatitis without necrosis or infection (principal); C81.90 Hodgkin lymphoma, unspecified, unspecified site; N17.9 Acute kidney failure, unspecified; E83.52 Hypercalcemia; I10 Essential (primary) hypertension; E87.6 Hypokalemia
CPT/HCPCS: 36415; 80048; 80053; 82150; 83690; 85025; 96372; 96374; 96375; C9113; J1170; J2405; J3230; J3480; J7030

== ENCOUNTER 2017-05-21 11:11 | Inpatient (IN) | payer MEDICARE, OTHER ==
[~2017-05-21] VITALS: Ht 177.8 cm; Wt 69.4 kg
[2017-05-21] MEDS ORDERED: SOD CHLORIDE 0.9% 1,000 ML IV STA (11:27)
[2017-05-21] MEDS ORDERED: ONDANSETRON 4 MG INJ IV STA (11:27)
[2017-05-21] MEDS ORDERED: morphine 4 MG/ML VIAL IV STA (11:33)
[2017-05-21] MEDS ORDERED: CHLORPROMAZINE 25 MG INJ IM ONE (12:00)
--- NOTE | 2017-05-21 12:01 | RADRPT ---
PROCEDURE: XR Chest. CLINICAL INDICATION: Abdominal pain. TECHNIQUE: Single frontal view. COMPARISON: 08/24/2015. FINDINGS: The lungs are clear. The heart size is normal. There is no pleural effusion. There is no pneumothorax. IMPRESSION: 1. Normal chest radiograph. 2. No change from 08/24/2015. RPTAT: QQ .Ed Carreon MD, MD Date Time Electronically viewed and signed by .Ed Carreon MD, MD on 05/21/2017 12:00 .R/
[2017-05-21 12:50] LABS: ADD SCAN DIFF NO
[2017-05-21 12:52] LABS: BASOPHILS % 0.4 % (0.0-2.0); HEMATOCRIT 51.3 % (42.0-52.0); HEMOGLOBIN 17.5 g/dl (14.0-18.0); LYMPHOCYTES # 0.9 10^3/ul (0.8-2.9); LYMPHOCYTES % 12.2 % (15.0-51.0); MEAN CORPUSCULAR HEMOGLOBIN 28.5 pg (29.0-33.0); MEAN CORPUSCULAR HGB CONC 34.1 g/dl (32.0-37.0); MEAN CORPUSCULAR VOLUME 83.7 fl (82.0-101.0); MEAN PLATELET VOLUME 10.6 fl (7.4-10.4); MONOCYTE # 0.7 10^3/ul (0.3-0.9); NEUTROPHIL # 5.6 10^3/ul (1.6-7.5); NEUTROPHILS % 77.1 % (39.0-77.0); PLATELET COUNT 243 10^3/UL (140-415); RED BLOOD COUNT 6.13 10^6/ul (4.70-6.10); RED CELL DISTRIBUTION WIDTH 14.3 % (11.5-14.5); WHITE BLOOD COUNT 7.3 10^3/ul (4.8-10.8)
[2017-05-21 13:23] LABS: ALANINE AMINOTRANSFERASE 31 IU/L (13-69); ALBUMIN 5.2 g/dl (3.3-4.9); ALBUMIN/GLOBULIN RATIO 1.08; ALKALINE PHOSPHATASE 86 IU/L (42-121); ANION GAP 24 (8-16); ASPARTATE AMINO TRANSFERASE 27 IU/L (15-46); BILIRUBIN,INDIRECT 0.4 mg/dl (0-1.1); BILIRUBIN,TOTAL 0.4 mg/dl (0.2-1.3); BLOOD UREA NITROGEN 17 mg/dl (7-20); CALCIUM 10.8 mg/dl (8.4-10.2); CARBON DIOXIDE 30 mmol/L (21-31); CHLORIDE 96 mmol/L (97-110); CREATININE 1.15 mg/dl (0.61-1.24); GLUCOSE 127 mg/dl (70-220); POTASSIUM 3.9 mmol/L (3.5-5.1); SODIUM 146 mmol/L (135-144)
[2017-05-21 13:36] LABS: TROPONIN-I < 0.012 ng/ml (0.00-0.12)
[2017-05-21] MEDS ORDERED: HYDROmorphONE 1 MG/ML SYG IV STA (14:11)
[2017-05-21] MEDS ORDERED: DEXTROSE 5%-0.45% NACL 1,000 ML IV SCH (14:28)
[2017-05-21] MEDS ORDERED: METOCLOPRAMIDE 10 MG INJ IV ONE (14:30)
[2017-05-21] MEDS ORDERED: ONDANSETRON 4 MG INJ IV PRN (14:30)
[2017-05-21] MEDS ORDERED: ACETAMINOPHEN 325 MG TAB PO PRN ×2 (14:30→20:00)
[2017-05-21] MEDS ORDERED: LACTATED RINGER'S 1,000 ML IV ONE (14:32)
[2017-05-21 17:00] VITALS: BP 145/71; PULSE 72; RESP 16
--- NOTE | 2017-05-21 17:12 | EN ---
Date/Time of Note Date/Time of Note DATE: 05/21/17 TIME: 17:05 ER Progress Note Staff was unable to obtain any IV access after 7 attempts. I was asked to perform an ultrasound-guided IV Ultrasound-guided peripheral IV insertion note: Right upper arm was cleaned with alcohol wipe. Ultrasound guidance was used to introduce an 18-gauge Angiocath into a deep vein of the upper arm near the basilic vein. There was excellent blood flow. IV flushed well. Patient was given medications through this IV. Images printed and saved in chart. Patient tolerated procedure well no complications. MARIANNE COKER DO May 21, 2017 17:12
--- NOTE | 2017-05-21 19:04 | RADRPT ---
PROCEDURE: XR Chest. CLINICAL INDICATION: Check PICC line position. TECHNIQUE: Single frontal view. COMPARISON: Prior study done earlier the same day. FINDINGS: There is a left arm PICC line with the tip coiled in the left subclavian vein. There is mild left b asilar atelectasis. The lungs are otherwise clear. The heart size is normal. There is no pleural effusion. There is no pneumothorax. IMPRESSION: 1. Left arm PICC line tip coiled in the left subclavian vein. 2. Mild left basilar atelectasis. 3. Otherwise normal chest radiograph. RPTAT: QQ .Ed Carreon MD, MD Date Time Electronically viewed and signed by .Ed Carreon MD, MD on 05/21/2017 19:04 .R/
--- NOTE | 2017-05-21 19:04 | RADRPT ---
PROCEDURE: XR Chest. CLINICAL INDICATION: Check PICC line position. TECHNIQUE: Single frontal view. COMPARISON: Prior study done earlier the same day. FINDINGS: There is a left arm PICC line with the tip in the lower superior vena cava. There is mild left basi lar atelectasis. The lungs are otherwise clear. The heart size is normal. There is no pleural effusion. There is no pneumothorax. IMPRESSION: 1. Left arm PICC line tip in satisfactory position. 2. Mild left basilar atelectasis. 3. Otherwise normal chest radiograph. RPTAT: QQ .Ed Carreon MD, MD Date Time Electronically viewed and signed by .Ed Carreon MD, on 05/21/2017 19:04 .R/
--- NOTE | 2017-05-21 19:05 | RADRPT ---
PROCEDURE: Ultrasound guidance for placement of needle in left upper extremity vein. CLINICAL INDICATION: Venous access. TECHNIQUE: Limited sonography of the left upper extremity was performed. Ultrasound images were recorded and s tored in the patient's medical record. COMPARISON: None. FINDINGS: The ultrasound images demonstrate a patent left upper extremity vein. The PICC line was inserted by the PICC line nurse. IMPRESSION: 1. Ultrasound guidance for a needle placement in a left upper extremity vein. 2. The left upper extremity vein is patent. RPTAT: QQ .Ed Carreon MD, MD Date Time Electronically viewed and signed by .Ed Carreon MD, MD on 05/21/2017 19:05 .R/
[2017-05-21 19:11] VITALS: BP 126/70; RESP 20
[2017-05-21] MEDS ORDERED: ZOLPIDEM 5 MG TAB PO PRN (20:00)
[2017-05-21] MEDS ORDERED: NACL 0.9% 3 ML SYG IV SCH (20:00)
[2017-05-21] MEDS: DEXTROSE 5%-0.45% NACL 1,000 ML IV SCH (20:18)
[2017-05-21] MEDS: morphine 2 MG INJ IV PRN (20:19)
[2017-05-21] MEDS: ONDANSETRON 4 MG INJ IV PRN (21:59)
[2017-05-22] MEDS: morphine 2 MG INJ IV PRN ×5 (00:50→21:16)
[2017-05-22 02:00] VITALS: BP 135/73; RESP 20
[2017-05-22] MEDS: DEXTROSE 5%-0.45% NACL 1,000 ML IV SCH ×3 (02:47→21:19)
[2017-05-22] MEDS: ONDANSETRON 4 MG INJ IV PRN ×3 (04:44→21:19)
[2017-05-22] MEDS: PANTOPRAZOLE 40 MG INJ IV SCH (06:01)
[2017-05-22 06:24] LABS: ADD SCAN DIFF NO
[2017-05-22 06:26] LABS: BASOPHILS % 0.3 % (0.0-2.0); EOSINOPHILS % 0.4 % (0.0-7.0); HEMATOCRIT 49.1 % (42.0-52.0); HEMOGLOBIN 16.1 g/dl (14.0-18.0); LYMPHOCYTES % 14.1 % (15.0-51.0); MEAN CORPUSCULAR HEMOGLOBIN 28.1 pg (29.0-33.0); MEAN CORPUSCULAR HGB CONC 32.8 g/dl (32.0-37.0); MEAN CORPUSCULAR VOLUME 85.7 fl (82.0-101.0); MEAN PLATELET VOLUME 10.9 fl (7.4-10.4); MONOCYTE # 1.1 10^3/ul (0.3-0.9); MONOCYTES % 15.2 % (0.0-11.0); NEUTROPHIL # 5.1 10^3/ul (1.6-7.5); NEUTROPHILS % 69.7 % (39.0-77.0); PLATELET COUNT 228 10^3/UL (140-415); RED BLOOD COUNT 5.73 10^6/ul (4.70-6.10); RED CELL DISTRIBUTION WIDTH 14.9 % (11.5-14.5); WHITE BLOOD COUNT 7.3 10^3/ul (4.8-10.8)
[2017-05-22 06:41] LABS: ALBUMIN 4.5 g/dl (3.3-4.9); ALBUMIN/GLOBULIN RATIO 1.25; BILIRUBIN,INDIRECT 0.5 mg/dl (0-1.1); BILIRUBIN,TOTAL 0.5 mg/dl (0.2-1.3); CALCIUM 9.3 mg/dl (8.4-10.2); CREATININE 1.16 mg/dl (0.61-1.24); POTASSIUM 3.4 mmol/L (3.5-5.1); TOTAL PROTEIN 8.1 g/dl (6.1-8.1)
[2017-05-22 07:55] VITALS: BP 139/88; RESP 18
[2017-05-22] MEDS ORDERED: CHLORPROMAZINE 25 MG TAB PO PRN (11:00)
--- NOTE | 2017-05-22 12:16 | RADRPT ---
PROCEDURE: US Abdomen and Retroperitoneum. CLINICAL INDICATION: Abdominal pain. Pancreatitis. TECHNIQUE: Multiple real-time longitudinal and transverse images were acquired of the patient's ab domen and retroperitoneum utilizing a curved array transducer. COMPARISON: Right upper quadrant abdomen ultrasound dated 12/30/2016. FINDINGS: The liver is normal in size and normal in echogenicity. The liver has a normal smooth surface. Ther e is no focal hepatic lesion. Color Doppler and pulsed Doppler sonography demonstrate normal antegra de flow in the portal vein. Multiple gallstones are present in the gallbladder. Sludge is also present in the gallbladder. The re is no gallbladder wall thickening or fluid around the gallbladder. The bile ducts are dilated with the common bile duct measuring 9.0 mm in diameter. The spleen is normal in size. There is no focal splenic lesion. The pancreas is not visualized due to overlying bowel gas. There is no free fluid. There is a possible cystic mass with internal debris in the mid abdomen sumanth suring 3.6 x 3.7 x 4.0 cm in AP, transverse, and cranial caudal dimensions The right kidney measures 10.4 x 3.6 cm and the left kidney measures 11.4 x 5.0 cm. There is no renal mass. There is no hydronephrosis or calculus. The abdominal aorta and inferior vena cava are not visualized due to overlying bowel gas. IMPRESSION: 1. Multiple gallstones and sludge in the gallbladder. 2. Dilated bile ducts with common bile duct measuring 9.0 cm. 3. Pancreas, abdominal aorta, and IVC not visualized. 4. Possible cystic mass with internal debris in the mid abdomen measuring up to 4.0 cm. This may b e a pseudocyst or other mass. Correlation with CT scan of the abdomen and pelvis is advised. 5. Otherwise unremarkable study. RPTAT: QQ .Ed Carreon MD, MD Date Time Electronically viewed and signed by .Ed Carreon MD, on 05/22/2017 12:16 .R/
[2017-05-22] MEDS ORDERED: CHLORPROMAZINE 25 MG INJ IM PRN (12:30)
[2017-05-22 14:12] VITALS: BP 112/67; RESP 18
[2017-05-22 19:38] VITALS: BP 117/78; RESP 18
[2017-05-23 02:46] VITALS: BP 118/61; RESP 18
[2017-05-23] MEDS: morphine 2 MG INJ IV PRN ×3 (02:59→11:42)
[2017-05-23] MEDS: DEXTROSE 5%-0.45% NACL 1,000 ML IV SCH ×4 (05:25→18:13)
[2017-05-23] MEDS: PANTOPRAZOLE 40 MG INJ IV SCH (05:35)
[2017-05-23 06:11] LABS: ALBUMIN 3.8 g/dl (3.3-4.9); ALBUMIN/GLOBULIN RATIO 1.18; BILIRUBIN,INDIRECT 0.6 mg/dl (0-1.1); BILIRUBIN,TOTAL 0.6 mg/dl (0.2-1.3); CALCIUM 8.4 mg/dl (8.4-10.2); CREATININE 1.19 mg/dl (0.61-1.24); POTASSIUM 3.4 mmol/L (3.5-5.1)
[2017-05-23 07:47] VITALS: BP 114/68; RESP 20
[2017-05-23 13:40] VITALS: BP 115/71; RESP 20
--- NOTE | 2017-05-23 14:05 | PN ---
Date/Time of Note Date/Time of Note DATE: 05/23/17 TIME: 14:01 Assessment/Plan VTE Prophylaxis VTE Prophylaxis Intervention: LMWH Lines/Catheters IV Catheter Type (from Nrsg): PICC Line Central line still needed: Yes Assessment/Plan Assessment/Plan pancreatitis- pt with gallstones. denies etoh as source. currently drinking very little. pt appears very comfortable and tolerating clear liquid but wants dilaudid due to morphine upsets stomach. will change to dilaudid but only bid prn. will check in with gi- see if pt needs cholecystectomy in the future. get HP from dictation service. Subjective 24 Hr Interval Summary Free Text/Dictation pt tolerated clr fluids. lipase is normal. +gallstones. gi consulted Exam/Review of Systems Vital Signs Vitals Vital Signs Date Time Temp Pulse Resp B/P Pulse Ox O2 Delivery O2 Flow Rate FiO2 05/23/17 13:40 98.9 81 20 115/71 99 05/21/17 17:00 Room Air Intake and Output 05/22/17 05/22/17 05/23/17 15:00 23:00 07:00 Intake Total 1100 ml 1120 ml 1200 ml Output Total 250 ml 250 ml Balance 1100 ml 870 ml 950 ml Exam abd soft ntnd Results Result Diagram: 05/22/17 0552 05/23/17 0500 Results 24 hrs Laboratory Tests Test 05/23/17 05:00 Sodium Level 140 Potassium Level 3.4 L Chloride Level 95 L Carbon Dioxide Level 32 H Anion Gap 16 Blood Urea Nitrogen 11 Creatinine 1.19 Glucose Level 108 Calcium Level 8.4 Total Bilirubin 0.6 Direct Bilirubin 0.00 Indirect Bilirubin 0.6 Aspartate Amino Transf (AST/SGOT) 26 Alanine Aminotransferase (ALT/SGPT) 21 Alkaline Phosphatase 53 Total Protein 7.0 # Albumin 3.8 Globulin 3.20 Albumin/Globulin Ratio 1.18 Lipase 247 Medications Medications Current Medications IV Flush (NS 10 ml) 10 ml PRN PRN IV FLUSH LINE; Start 05/21/17 at 19:30 Ondansetron HCl (Zofran Inj) 4 mg Q6H PRN IV NAUSEA AND/OR VOMITING Last administered on 05/22/17t 21:19; Admin Dose 4 MG; Start 05/21/17 at 20:00 Acetaminophen (Tylenol Tab) 650 mg Q6H PRN PO PAIN LEVEL 1-3 OR FEVER; Start at 20:00 Morphine Sulfate (morphine) 2 mg Q4H PRN IV SEVERE PAIN LEVEL 7-10 Last administered on 05/23/17 11:42; Admin Dose 2 MG; Start 05/21/17 at 20:00 Zolpidem Tartrate (Ambien) 5 mg QHS PRN PO SLEEP; Start 05/21/17 at 20:00 Pantoprazole 40 mg 40 mg DAILY@06 IV Last administered on 05/23/17 05:35; Admin Dose 40 MG; Start 05/22/17 at 06:00 Dextrose/Sodium Chloride (D5-1/2ns) 1,000 ml @ 100 mls/hr Q10H IV Last administered on 05/23/17 07:35; Admin Dose 100 MLS/HR; Start 05/21/17 at 20:30 Chlorpromazine (Thorazine) 50 mg QID PRN PO hiccups; Start 05/22/17 at 11:00 Clonidine (Catapres) 0.1 mg TID PRN PO sbp>170; Start 05/22/17 at 11:00 Chlorpromazine (Thorazine) 25 mg Q4H PRN IM hiccups Last administered on 13:00; Admin Dose 25 MG; Start 05/22/17 at 12:30 HERBIE ORTIZ MD May 23, 2017 14:05
[2017-05-23] MEDS: ENOXAPARIN 30 MG/0.3 ML SYG SC SCH (15:18)
[2017-05-23 16:51] VITALS: Ht 177.8 cm; Wt 69.4 kg
[2017-05-23] MEDS: HYDROmorphONE 1 MG/ML SYG IV PRN (16:56)
[2017-05-23 20:09] VITALS: BP 139/83; RESP 20
[2017-05-24 02:18] VITALS: BP 124/74; RESP 20
--- NOTE | 2017-05-24 03:45 | HP ---
DATE OF ADMISSION: 05/21/2017 HISTORY OF THE PRESENT ILLNESS: The patient is a 62-year-old male with history of pancreatitis who was recently in the hospital for pancreatitis in 12/2016. The patient reports coming in this time with abdominal pain after hiccups, having vomiting because of the hiccups. The patient reports that its all the fault of the hiccups. The last time his pancreatitis was thought to be either due to alcohol induced or from gallstones. The patient on last visit had an lipase up to 629, had ultrasound demonstrating multiple gallstones, gallbladder wall thickness was normal. The patient on this hospitalization reports he drinks one to two drinks per night, requesting Dilaudid for pain. The patient has history of recurrent pancreatitis, hypertension, Hodgkin's disease, status post-splenectomy and chemotherapy and a history of esophageal pleural fistula. Currently hiccups does come and go. PAST MEDICAL HISTORY: As stated above, with splenectomy. Hodgkin's disease in 1995. Diagnosed with lymphoma. Had chemotherapy. PAST SURGICAL HISTORY: Loculated left pleural effusion and empyema. Pulmonary decortication. Splenectomy. ERCP. Placement of pancreatic duct stent and common bile duct stent in 2008. SOCIAL HISTORY: Denies smoking. Patient reports he is a social drinker with 1 to 2 drinks per night. ALLERGIES: TOBRAMYCIN. PHYSICAL EXAMINATION: VITAL SIGNS: Blood pressure is 139/88, temperature 98.5, pulse 81, respiratory rate is 18. Pulse oximetry is 100 percent on room air. HEENT: Normocephalic. NECK: No bruits. HEART: Regular rate and rhythm. LUNGS: Clear to auscultation bilaterally. ABDOMEN: No pain with palpation over the abdomen. No right upper quadrant pain with palpation. EXTREMITIES: Lower extremities with no pitting edema. LABORATORY DATA: WBC 7.3, hemoglobin 17.5, platelets 243,000. Sodium 146, creatinine 1.1, lipase 333, AST and ALT are normal. IMAGING: Chest x-ray was normal, no change from 2015. ASSESSMENT AND PLAN: 1. Pancreatitis: Will place the patient on nothing per mouth overnight. Recheck amylase and a lipase. Give pain medications as necessary and after patient is feeling better we will start clear liquid diet. Will get repeat ultrasound and look at the gallstones and the pancreas. The patient is currently asking for Dilaudid, the patient does not appear to be in that much pain. We will continue with Morphine as needed. 2. Hiccups: The patient normally takes Thorazine at home. We will continue with this. 3. History of splenectomy, secondary to lymphoma. 4. Hypertension: Will treat as needed with medications. Dictated By: Elroy Esposito MD /viet/nabeel /Document#: [id number]
[2017-05-24] MEDS: HYDROmorphONE 1 MG/ML SYG IV PRN ×2 (04:26→16:25)
[2017-05-24] MEDS: PANTOPRAZOLE 40 MG INJ IV SCH (05:14)
[2017-05-24] MEDS: DEXTROSE 5%-0.45% NACL 1,000 ML IV SCH ×3 (05:15→16:24)
[2017-05-24 06:11] LABS: CALCIUM 7.9 mg/dl (8.4-10.2); CREATININE 1.06 mg/dl (0.61-1.24); POTASSIUM 3.4 mmol/L (3.5-5.1)
--- NOTE | 2017-05-24 07:06 | RADRPT ---
PROCEDURE: MR Abdomen without contrast and MRCP. CLINICAL INDICATION: Right upper quadrant abdominal pain. TECHNIQUE: MRI abdomen in conjunction with MRCP was performed without the administration of intrav enous contrast. COMPARISON: Ultrasound, 05/22/2017. CT, 08/24/2015 FINDINGS: There is mild dilatation of the intrahepatic and extrahepatic biliary system with common bile duct m easuring up to 9 mm. There is also diffuse dilatation of the main pancreatic duct measuring up to 4 mm. There are also dilated side branch radicles identified in the uncinate process of the pancreas . The gallbladder demonstrates layering stones without gallbladder wall thickening or pericholecystic inflammation. There is a subcentimeter cyst in the left lobe of the liver. Midline cystic structure identified on the prior ultrasound appears to correspond to a 2.6 x 2.8 cm T2 hyperintense lesion noted in the second portion of the duodenum. IMPRESSION: Examination was prematurely terminated, as the patient refused to continue, limiting evaluation. Mild diffuse pancreatic ductal dilatation. Pancreatic parenchymal calcifications are noted in the p ancreas on the prior CT of 08/24/2015, compatible with chronic pancreatitis. Indeterminate mild intrahepatic and extrahepatic bile duct dilatation without an obvious filling def ect or extrinsic lesion demonstrated on this limited examination. If correlation with LFTs suggest cholestasis or if there is clinical concern for biliary obstruction, consider ERCP. Midline cystic structure identified on the prior ultrasound appears to correspond to a T2 hyperinten se lesion/structure within versus abutting the proximal second portion of the duodenum. This findin g is incompletely characterized on this limited examination but appears to be present and unchanged in comparison to the limited noncontrast prior CT of 08/24/2015 suggesting benignity. Consider frank elation with endoscopic ultrasound. Cholelithiasis, uncomplicated. RPTAT: EE .Maxwell Taveras MD, MD Date Time Electronically viewed and signed by .Maxwell Taveras MD, MD on 05/24/2017 07:10 .C/
[2017-05-24 07:49] VITALS: BP 130/81; RESP 20
[2017-05-24] MEDS: ENOXAPARIN 30 MG/0.3 ML SYG SC SCH (09:47)
--- NOTE | 2017-05-24 12:22 | CONS ---
Date/Time of Note Date/Time of Note DATE: 05/24/17 TIME: 12:15 Consult Date/Type/Reason Admit Date/Time May 21, 2017 at 19:52 Initial Consult Date Type of Consultation: GI Reason for Consultation Pancreatitis Subjective No further abdominal pain Did not tolerate entire MRCP although no CBD stones seens and cystic lesion unchanged Wants to have any surgery during this admission Objective Vital Signs Date Time Temp Pulse Resp B/P Pulse Ox O2 Delivery O2 Flow Rate FiO2 05/24/17 07:49 98.5 71 20 130/81 100 05/21/17 17:00 Room Air Abdomen: soft, non tender. +BS Intake and Output 05/23/17 05/23/17 05/24/17 15:00 23:00 07:00 Intake Total 1000 ml 2040 ml 1000 ml Output Total 300 ml Balance 1000 ml 1740 ml 1000 ml Results/Medications Result Diagram: 05/22/17 0552 05/24/17 0518 Results 24 hrs Laboratory Tests Test 05/24/17 05:18 Sodium Level 139 Potassium Level 3.4 L Chloride Level 98 Carbon Dioxide Level 29 Anion Gap 15 Blood Urea Nitrogen 7 Creatinine 1.06 Glucose Level 92 Calcium Level 7.9 L Lipase 41 Medications Current Medications IV Flush (NS 10 ml) 10 ml PRN PRN IV FLUSH LINE; Start 05/21/17 at 19:30 Ondansetron HCl (Zofran Inj) 4 mg Q6H PRN IV NAUSEA AND/OR VOMITING Last administered on 05/22/17 21:19; Admin Dose 4 MG; Start 05/21/17 at 20:00 Acetaminophen (Tylenol Tab) 650 mg Q6H PRN PO PAIN LEVEL 1-3 OR FEVER; Start at 20:00 Zolpidem Tartrate (Ambien) 5 mg QHS PRN PO SLEEP; Start 05/21/17 at 20:00 Pantoprazole 40 mg 40 mg DAILY@06 IV Last administered on 05/24/17 05:14; Admin Dose 40 MG; Start 05/22/17 at 06:00 Dextrose/Sodium Chloride (D5-1/2ns) 1,000 ml @ 50 mls/hr Q20H IV Last administered on 05/24/17 05:15; Admin Dose 50 MLS/HR; Start 05/21/17 at 20:30 Chlorpromazine (Thorazine) 50 mg QID PRN PO hiccups Last administered on 09:50; Admin Dose 50 MG; Start 05/22/17 at 11:00 Clonidine (Catapres) 0.1 mg TID PRN PO sbp>170; Start 05/22/17 at 11:00 Chlorpromazine (Thorazine) 25 mg Q4H PRN IM hiccups Last administered on 13:00; Admin Dose 25 MG; Start 05/22/17 at 12:30 Hydromorphone HCl (Dilaudid) 0.5 mg BID PRN IV PAIN Last administered on 04:26; Admin Dose 0.5 MG; Start 05/23/17 at 14:00 Enoxaparin Sodium (Lovenox) 30 mg DAILY SC Last administered on 05/24/17 09:47 ; Admin Dose 30 MG; Start 05/23/17 at 14:30 Assessment/Plan Chief Complaint/Hosp Course Impression: 1. Pancreatitis - resolved by labs and clinically 2. Dilated CBD - normal LFTs and no stone seen on MRCP 3. Cystic Pancreatic Lesion - apparently unchanged from prior Plan: 1. Advance to low fat diet 2. Advise absolutely no alcohol 3. Call Dr Rivera who saw him previously for surgical evaluation regarding cholelithiasis Problems: KENDRA WRIGHT MD May 24, 2017 12:21
[2017-05-24] MEDS ORDERED: POTASSIUM CHLORIDE (SR) 20 MEQ TAB PO STA (12:58)
--- NOTE | 2017-05-24 12:58 | PN ---
Date/Time of Note Date/Time of Note DATE: 05/24/17 TIME: 12:54 Assessment/Plan VTE Prophylaxis VTE Prophylaxis Intervention: LMWH Lines/Catheters IV Catheter Type (from Nrsg): PICC Line Central line still needed: Yes Assessment/Plan Assessment/Plan pancreatitis with gallstones and sludge. possible surg on this admission. lipase resolved and starting low fat diet. -in no pain. low K will give 1 dose K today. Subjective 24 Hr Interval Summary Free Text/Dictation tolerating full liquid. advanced to low fat. surg and gi has eval and possibly surg on this admission. Exam/Review of Systems Vital Signs Vitals Vital Signs Date Time Temp Pulse Resp B/P Pulse Ox O2 Delivery O2 Flow Rate FiO2 05/24/17 07:49 98.5 71 20 130/81 100 05/21/17 17:00 Room Air Intake and Output 05/23/17 05/23/17 05/24/17 15:00 23:00 07:00 Intake Total 1000 ml 2040 ml 1000 ml Output Total 300 ml Balance 1000 ml 1740 ml 1000 ml Exam abd soft nt, nd, no palp mass cv rrr lungs cta. Results Result Diagram: 05/22/17 0552 05/24/17 0518 Results 24 hrs Laboratory Tests Test 05/24/17 05:18 Sodium Level 139 Potassium Level 3.4 L Chloride Level 98 Carbon Dioxide Level 29 Anion Gap 15 Blood Urea Nitrogen 7 Creatinine 1.06 Glucose Level 92 Calcium Level 7.9 L Lipase 41 Medications Medications Current Medications IV Flush (NS 10 ml) 10 ml PRN PRN IV FLUSH LINE; Start 05/21/17 at 19:30 Ondansetron HCl (Zofran Inj) 4 mg Q6H PRN IV NAUSEA AND/OR VOMITING Last administered on 05/22/17 21:19; Admin Dose 4 MG; Start 05/21/17 at 20:00 Acetaminophen (Tylenol Tab) 650 mg Q6H PRN PO PAIN LEVEL 1-3 OR FEVER; Start at 20:00 Zolpidem Tartrate (Ambien) 5 mg QHS PRN PO SLEEP; Start 05/21/17 at 20:00 Pantoprazole 40 mg 40 mg DAILY@06 IV Last administered on 05/24/17 05:14; Admin Dose 40 MG; Start 05/22/17 at 06:00 Dextrose/Sodium Chloride (D5-1/2ns) 1,000 ml @ 50 mls/hr Q20H IV Last administered on 05/24/17 05:15; Admin Dose 50 MLS/HR; Start 05/21/17 at 20:30 Chlorpromazine (Thorazine) 50 mg QID PRN PO hiccups Last administered on 09:50; Admin Dose 50 MG; Start 05/22/17 at 11:00 Clonidine (Catapres) 0.1 mg TID PRN PO sbp>170; Start 05/22/17 at 11:00 Chlorpromazine (Thorazine) 25 mg Q4H PRN IM hiccups Last administered on 13:00; Admin Dose 25 MG; Start 05/22/17 at 12:30 Hydromorphone HCl (Dilaudid) 0.5 mg BID PRN IV PAIN Last administered on 04:26; Admin Dose 0.5 MG; Start 05/23/17 at 14:00 Enoxaparin Sodium (Lovenox) 30 mg DAILY SC Last administered on 05/24/17 09:47 ; Admin Dose 30 MG; Start 05/23/17 at 14:30 HERBIE ORTIZ MD May 24, 2017 12:57
--- NOTE | 2017-05-24 13:58 | CONS ---
Date/Time of Note Date/Time of Note DATE: 05/24/17 TIME: 13:55 Assessment/Plan Assessment/Plan Additional Assessment/Plan [facility] INPATIENT CONSULTATION NOTE DATE OF SERVICE: 05/24/2017 PLACE OF SERVICE: [facility], sixth floor ASSESSMENT AND PLAN: A very-pleasant 62-year-old gentleman, well-known to me from October 2013 visit with us at the [facility] for pancreas abnormality which has since been somewhat demonstrated to be from chronic pancreatitis with low suspicion for malignancy, presenting again with pancreatitis which appears to be mild and for the most part resolved at this time. Patient can certainly benefit from an elective laparoscopic cholecystectomy for risk reduction (from approximately 30% down to near 0% in normal circumstances with gallstone pancreatitis patients), in addition to complete abstinence from alcohol intake. Given the residual abnormalities seen on the most recent imaging, I am still recommending what I recommended in October 2013, which is for the patient to undergo endoscopic ultrasound evaluation of the head of the pancreas. It would be still relevant to do so prior to an elective operation in order to better understand the anatomy, as well as possibly intervening on the pancreatic duct itself in the form of stenting or sphincterotomy of both. Eventually however, I do recommend that the patient have his gallbladder taken out. There may be a few socioeconomic factors related to his job that may alter the timing of intervention, but most ideal course would be to do the EUS prior to laparoscopic cholecystectomy. I explained all of this in detail with the patient (no family present during my discussions with the patient) and answered all his questions. Patient appeared to understand and agreed with plans. With above assessment, I've recommended the followin. Continue current management of pancreatitis 2. Alcohol cessation counseling 3. Obtain records since 2012, in particular any gastroenterology interventions done in the meantime 4. If no recent endoscopic ultrasound evaluation, to set the patient up for this study as an outpatient (since we do not have this ability in-house at [facility]) 5. Follow-up with me as an outpatient after above is done to discuss further laparoscopic cholecystectomy and set patient up for the operation Thank you very much for having me involved in the care of this very pleasant patient and wonderful family. If you have any questions, please feel free to contact me at [phone]. Nature of presenting problem: Moderate severity Please note that, given the multiple number of diagnoses or management options, the extensive amount and/or complexity of data needed to be reviewed, and high risk of complications and/or morbidity or mortality, this qualifies as high complexity type of decision-making. Disclaimer: Inadvertent spelling and grammatical errors are likely due to EHR/ dictation software use and do not reflect on the quality of delivered patient care. Also, please note that the electronic time recorded on this node does not necessarily reflect the actual time of the visit. Updated clinical summary: The patient is a very pleasant 62-year-old gentleman, well-known to me from October 2013 visit with us at the [facility] for pancreas abnormality which has since been somewhat demonstrated to be from chronic pancreatitis with low suspicion for malignancy, presenting again with pancreatitis. Comorbidities: 1. History of Hodgkin's lymphoma, 1995, starting with swollen left parotid area ; status post splenectomy plus chemotherapy with combination of ABVD (? 6 cycles); in remission since 2. 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 Treated at [facility] with chest tube placement, esophageal stenting and nutritional support with a feeding tube. There was history of loculated left pleural effusion and empyema and the patient reportedly underwent pulmonary decortication. 3. Mention of atrial fibrillation in the chart 4. History of alcohol abuse (reportedly in the past although the patient is drinking socially currently) 5. Multiple episodes of pancreatitis. Complex solid and cystic pancreatic head mass with foci of calcifications on CT scan 08/17/2013. Additionally, there was pancreatic duct dilatation as well as cystic duct dilatation and distention of the gallbladder, with multiple tiny stones visualized. Seen in my office October 2013 where endoscopic ultrasound was recommended. Lost to follow-up since then. 6. History of ERCP with placement of pancreatic duct stent and common bile duct stent in 2008. 6. A number of visits to [facility] emergency department in 2013 and 2014 for hiccups and headaches. Readmission for pancreatitis December 31, 2016 with discharge on January 03, 2017 (recommendation made to see a surgeon for removal of gallbladder) CONSULTATION REQUESTED BY: Vaibhav Melvin MD and Geneva Ansari MD HISTORY OF PRESENT ILLNESS: The patient is a very pleasant 62-year-old gentleman, well-known to me from October 2013 visit with us at the [facility] for pancreas abnormality which has since been somewhat demonstrated to be from chronic pancreatitis with low suspicion for malignancy, presenting again with abdominal pain, hiccups and vomiting and laboratory values are consistent with mild pancreatitis. He described a moderate abdominal pain that was mainly in the mid upper quadrants without radiation, without any alleviating factors or exacerbating factors, sharp in nature, and intermittent in occurrence. With pain medications, the pain has been very much under control. His laboratory values have also normalized. His imaging studies had shown presence of gallstones, which were also seen in distant images as well. Patient had not followed up with me after his visit with us in October 2013 and it is unclear to me whether he has had the recommended endoscopic ultrasound evaluation of the head of his pancreas. No other major complaints during my visit. ALLERGIES: Tobramycin (unknown reaction) MEDICATIONS Documented in the electronic records and reviewed by me. Please see the electronic records for details, as well as details for inpatient medications which were also reviewed by me. SOCIAL HISTORY: The patient lives with family. He has 4 children. Currently working in a mental health facility.-[employer]; reports social ETOH; history of heavy alcohol use in the past and attending AA meetings but unclear whether he was ever remember;-IVDU FAMILY HISTORY: Diabetes, heart disease, and a sister with history of breast cancer. There are no other significant medical, surgical or oncologic issues in the family as reported by the patient or reflected in the chart. REVIEW OF SYSTEMS: Other than mentioned above, there were no other pertinent positives or pertinent negatives in an otherwise complete 14 point review of systems. PHYSICAL EXAMINATION GENERAL: The patient appears to be a very pleasant -Portuguese gentleman of non- descent lying in bed, appearing stated age,] and otherwise in no acute distress. BMI: 22 (previously, 19.15 December 2016; 24.11 February 2015) VITAL SIGNS: Temperature 98.5, blood pressure 130/81, pulse 71, respiratory 20, pulse oximetry 100% on room air. (please also see auto important data if available as well as the electronic records) HEENT: Normocephalic and atraumatic. Extraocular muscles and hearing are grossly intact bilaterally and symmetrically. Sclerae are nonicteric. Oral cavity is clear; oral mucosa appear to be pink and moist. Dentition: fair. NECK: Supple. There is no lymphadenopathy or JVD. There is no submental, submandibular or supraclavicular lymphadenopathy. CHEST: Rises symmetrically with each breath; patient is breathing comfortably. There are no audible wheezes, rales or rhonchi on the gross exam. HEART: Pulse is regular and palpable on the right wrist. Capillary refill is normal. Carotid pulses are palpable bilaterally and symmetrically in the neck. EXTREMITIES: Lower extremities contain no pitting edema around the ankles bilaterally and symmetrically. ABDOMEN: Abdomen is soft, nontender and nondistended. No evidence of ascites, organomegaly, caput medusae, engorged subcutaneous veins, or other abnormalities. There are no peritoneal signs or guarding. SKIN: Appears to be pink and feels warm to touch. NEUROLOGIC: Awake, alert, and follows commands appropriately. LABORATORY DATA: See below. White blood cell count 7.3, hemoglobin 16.1, platelets 228. Electrolytes normal with potassium of 3.4. CO2 29, creatinine 1.06. Liver function and injury parameters normal. Albumin 3.8 after resuscitation. Lipase on admission 333, down to 41 on day 2. IMAGING: See electronic chart. Please note that I've personally reviewed all pertinent available images and I agree in general with their overall reported findings. [facility] right upper quadrant ultrasound 05/22/2017 IMPRESSION: 1. Multiple gallstones and sludge in the gallbladder. 2. Dilated bile ducts with common bile duct measuring 9.0 cm. 3. Pancreas, abdominal aorta, and IVC not visualized. 4. Possible cystic mass with internal debris in the mid abdomen measuring up to 4.0 cm. This may be a pseudocyst or other mass. Correlation with CT scan of the abdomen and pelvis is advised. 5. Otherwise unremarkable study. [facility] MRCP 05/23/2017 IMPRESSION: Examination was prematurely terminated, as the patient refused to continue, limiting evaluation. Mild diffuse pancreatic ductal dilatation. Pancreatic parenchymal calcifications are noted in the pancreas on the prior CT of 08/24/2015, compatible with chronic pancreatitis. Indeterminate mild intrahepatic and extrahepatic bile duct dilatation without an obvious filling defect or extrinsic lesion demonstrated on this limited examination. If correlation with LFTs suggest cholestasis or if there is clinical concern for biliary obstruction, consider ERCP. Midline cystic structure identified on the prior ultrasound appears to correspond to a T2 hyperintense lesion/structure within versus abutting the proximal second portion of the duodenum. This finding is incompletely characterized on this limited examination but appears to be present and unchanged in comparison to the limited noncontrast prior CT of 08/24/2015 suggesting benignity. Consider correlation with endoscopic ultrasound. Cholelithiasis, uncomplicated. In the past, there was above-mentioned CT August 2013 that mentioned a 6 cm x 5 cm head of the pancreas cystic lesion. This was followed by PET/CT on 2012 that showed a curvilinear focus situated either within or adjacent to the head of the pancreas, highly suspicious for malignancy. This was followed by IV contrast CT on 10/18/2013, which demonstrated lack of previously seen cystic lesion in the head of the pancreas. Consultation Date/Type/Reason Admit Date/Time May 21, 2017 at 19:52 Social History Smoking Status: Current some day smoker Exam/Review of Systems Vital Signs Vitals Vital Signs Date Time Temp Pulse Resp B/P Pulse Ox O2 Delivery O2 Flow Rate FiO2 05/24/17 07:49 98.5 71 20 130/81 100 05/21/17 17:00 Room Air Intake and Output 05/23/17 05/23/17 05/24/17 15:00 23:00 07:00 Intake Total 1000 ml 2040 ml 1000 ml Output Total 300 ml Balance 1000 ml 1740 ml 1000 ml Results Result Diagram: 05/22/17 0552 05/24/17 0518 Results 24 hrs Laboratory Tests Test 05/24/17 05:18 Sodium Level 139 Potassium Level 3.4 L Chloride Level 98 Carbon Dioxide Level 29 Anion Gap 15 Blood Urea Nitrogen 7 Creatinine 1.06 Glucose Level 92 Calcium Level 7.9 L Lipase 41 Medications Medications Current Medications IV Flush (NS 10 ml) 10 ml PRN PRN IV FLUSH LINE; Start 05/21/17 at 19:30 Ondansetron HCl (Zofran Inj) 4 mg Q6H PRN IV NAUSEA AND/OR VOMITING Last administered on 05/22/17 21:19; Admin Dose 4 MG; Start 05/21/17 at 20:00 Acetaminophen (Tylenol Tab) 650 mg Q6H PRN PO PAIN LEVEL 1-3 OR FEVER; Start at 20:00 Zolpidem Tartrate (Ambien) 5 mg QHS PRN PO SLEEP; Start 05/21/17 at 20:00 Pantoprazole 40 mg 40 mg DAILY@06 IV Last administered on 05/24/17 05:14; Admin Dose 40 MG; Start 05/22/17 at 06:00 Dextrose/Sodium Chloride (D5-1/2ns) 1,000 ml @ 50 mls/hr Q20H IV Last administered on 05/24/17 05:15; Admin Dose 50 MLS/HR; Start 05/21/17 at 20:30 Chlorpromazine (Thorazine) 50 mg QID PRN PO hiccups Last administered on 09:50; Admin Dose 50 MG; Start 05/22/17 at 11:00 Clonidine (Catapres) 0.1 mg TID PRN PO sbp>170; Start 05/22/17 at 11:00 Chlorpromazine (Thorazine) 25 mg Q4H PRN IM hiccups Last administered on 13:00; Admin Dose 25 MG; Start 05/22/17 at 12:30 Hydromorphone HCl (Dilaudid) 0.5 mg BID PRN IV PAIN Last administered on 04:26; Admin Dose 0.5 MG; Start 05/23/17 at 14:00 Enoxaparin Sodium (Lovenox) 30 mg DAILY SC Last administered on 05/24/17 09:47 ; Admin Dose 30 MG; Start 05/23/17 at 14:30 WAYNE CARROLL M.D. May 24, 2017 13:57
[2017-05-24 14:08] VITALS: BP 154/89; RESP 18
[2017-05-24 19:28] VITALS: BP 142/78; RESP 20
[2017-05-25 01:30] VITALS: BP 130/66; RESP 20
[2017-05-25] MEDS: HYDROmorphONE 1 MG/ML SYG IV PRN ×2 (04:08→14:59)
[2017-05-25] MEDS: PANTOPRAZOLE 40 MG INJ IV SCH (05:29)
[2017-05-25 07:27] LABS: CALCIUM 8.6 mg/dl (8.4-10.2); CREATININE 1.12 mg/dl (0.61-1.24); POTASSIUM 4.1 mmol/L (3.5-5.1)
[2017-05-25 07:34] VITALS: BP 139/85; RESP 18
[2017-05-25] MEDS: DEXTROSE 5%-0.45% NACL 1,000 ML IV SCH ×2 (08:33→11:59)
[2017-05-25] MEDS: ENOXAPARIN 30 MG/0.3 ML SYG SC SCH (09:23)
--- NOTE | 2017-05-25 12:20 | CONS ---
Date/Time of Note Date/Time of Note DATE: 05/25/17 TIME: 12:16 Consult Date/Type/Reason Admit Date/Time May 21, 2017 at 19:52 Type of Consultation: GI Subjective Feels well No abdominal complaints Dr Rivera note reviewed re EUS Objective Vital Signs Date Time Temp Pulse Resp B/P Pulse Ox O2 Delivery O2 Flow Rate FiO2 05/25/17 07:34 98.7 65 18 139/85 100 05/21/17 17:00 Room Air Abdomen: soft, non tender +BS Intake and Output 05/24/17 05/24/17 05/25/17 14:59 22:59 06:59 Intake Total 765 ml 1030 ml Output Total 4 ml Balance -4 ml 765 ml 1030 ml Results/Medications Result Diagram: 05/22/17 0552 05/25/17 0537 Results 24 hrs Laboratory Tests Test 05/25/17 05:37 Sodium Level 138 Potassium Level 4.1 Chloride Level 100 Carbon Dioxide Level 27 Anion Gap 15 Blood Urea Nitrogen 7 Creatinine 1.12 Glucose Level 95 Calcium Level 8.6 Medications Current Medications IV Flush (NS 10 ml) 10 ml PRN PRN IV FLUSH LINE; Start 05/21/17 at 19:30 Ondansetron HCl (Zofran Inj) 4 mg Q6H PRN IV NAUSEA AND/OR VOMITING Last administered on 05/22/17 21:19; Admin Dose 4 MG; Start 05/21/17 at 20:00 Acetaminophen (Tylenol Tab) 650 mg Q6H PRN PO PAIN LEVEL 1-3 OR FEVER; Start at 20:00 Zolpidem Tartrate (Ambien) 5 mg QHS PRN PO SLEEP; Start 05/21/17 at 20:00 Pantoprazole 40 mg 40 mg DAILY@06 IV Last administered on 05/25/17 05:29; Admin Dose 40 MG; Start 05/22/17 at 06:00 Dextrose/Sodium Chloride (D5-1/2ns) 1,000 ml @ 50 mls/hr Q20H IV Last administered on 05/25/17 11:59; Admin Dose 50 MLS/HR; Start 05/21/17 at 20:30 Chlorpromazine (Thorazine) 50 mg QID PRN PO hiccups Last administered on 7/18/ 17at 09:50; Admin Dose 50 MG; Start 05/22/17 at 11:00 Clonidine (Catapres) 0.1 mg TID PRN PO sbp>170; Start 05/22/17 at 11:00 Chlorpromazine (Thorazine) 25 mg Q4H PRN IM hiccups Last administered on 13:00; Admin Dose 25 MG; Start 05/22/17 at 12:30 Hydromorphone HCl (Dilaudid) 0.5 mg BID PRN IV PAIN Last administered on 04:08; Admin Dose 0.5 MG; Start 05/23/17 at 14:00 Enoxaparin Sodium (Lovenox) 30 mg DAILY SC Last administered on 05/25/17 09:23 ; Admin Dose 30 MG; Start 05/23/17 at 14:30 Assessment/Plan Chief Complaint/Hosp Course Impression: 1. Pancreatitis - resolved by labs and clinically 2. Dilated CBD - normal LFTs and no stone seen on MRCP 3. Cystic Pancreatic Lesion - apparently unchanged from prior Plan: 1. OK for discharge from GI standpoint 2. Offered EUS at [facility] or Dr Kuhn in [place]. Patient wants to do in [place] and contact information provided 3. I will sign off for now. Will be happy to see again at your request Problems: KENDRA WRIGHT MD May 25, 2017 12:20
[2017-05-25 13:05] VITALS: BP 143/74; RESP 18
--- NOTE | 2017-05-29 17:16 | DS ---
DATE OF ADMISSION: 05/21/2017 DATE OF DISCHARGE: 05/25/2017 ADMISSION DIAGNOSIS: Pancreatitis, cholelithiasis, nausea, vomiting, and abdominal pain. HOSPITAL COURSE: This is a patient with chronic pancreatitis, who has come in multiple times, last time seen by Dr. Garcia in the beginning of the year. He was to get as an outpatient an endoscopic ultrasound of the pancreas head to identify any other type of stone that may be present. The patient came in once again for acute pancreatitis, nausea, vomiting, and abdominal pain. While in the hospital, the patient's pain resolved, was able to tolerate a low fat diet. GI evaluated the patient and had been stable and was able to be discharged with followup with Dr. Garcia. The patient saw the surgeon, he had the same recommendations due to tests not available at [facility] as an outpatient. The patient is to get an endoscopic ultrasound of the pancreas, and if this is negative, followup with him as an outpatient for laparoscopic cholecystectomy. The patient is currently doing fine and is now discharged. The patient is on no medications as an outpatient. The patient is to continue with a low fat carbohydrate diet, avoid all alcohol. Dictated By: Elroy Esposito MD /viet/del /Document#: [id number]
== END 2017-05-25 16:45 | disposition home or self-care (01) | DRG 440 ==
LOC: FTE 11:11 → MS2 14:31 → OBSVTOIN 19:52
PROVIDERS: ADMIT Internal Medicine; ATTEND Internal Medicine
PROC: 05H633Z Insertion of Infusion Device into Left Subclavian Vein, Percutaneous Approach (ICD-10-PCS; principal; 2017-05-21)
DX: K85.90 Acute pancreatitis without necrosis or infection, unspecified (principal); I48.91 Unspecified atrial fibrillation; I10 Essential (primary) hypertension; K80.20 Calculus of gallbladder without cholecystitis without obstruction; R06.6 Hiccough; Z85.71 Personal history of Hodgkin lymphoma
CPT/HCPCS: 36569; 71010; 74181; 76700; 76937; 80048; 80053; 83690; 84484; 85025; 93005; C1769; C9113; G0378; J1170; J1650; J2270; J2405; J2765; J3230; J7030; J7042; J7120

== ENCOUNTER 2017-06-29 15:18 | Emergency (ER) | payer OTHER ==
[~2017-06-29] VITALS: Wt 70.5 kg
[2017-06-29 15:25] VITALS: Wt 70.5 kg
--- NOTE | 2017-06-29 15:41 | ERA ---
ER Documentation Chief Complaint Date/Time DATE: 06/29/17 TIME: 15:40 Chief Complaint hiccups HPI The patient is a 72-year-old male, presenting to the ER because of persistent hiccups for the last 2 days. He has similar symptoms previously that was treated with Thorazine IM with good response. He denies fever, chills, neck pain, chest pain, dyspnea. He complains of diffuse abdominal pain, associated with nausea and vomiting for the last 2 days, denies dysuria, diarrhea, constipation. He does not does any illicit drug, smokes and drinks Past medical history: Cholelithiasis, history of Hodgkin's lymphoma, history of atrial fibrillation, history of pancreatitis Past surgical history: Splenectomy ROS All systems reviewed and are negative except as per history of present illness. Medications Home Meds Reported Medications Aspirin (Low Dose Aspirin) 81 Mg Tablet.dr, 81 MG PO DAILY, #30 TAB 06/29/17 Allergies Allergies: Coded Allergies: bleomycin (Verified Allergy, Severe, SEVERE SHIVERING, SHALLOW BREATHING , 06/29/17) THIS MEDICATION WAS TAKEND URING FIRST SESSION OF CHEMO PMhx/Soc History of Surgery: Yes ([id number], SMALL CYST REMOVAL(LEFT EAR)) Anesthesia Reaction: No Hx Neurological Disorder: No Hx Respiratory Disorders: No Hx Cardiac Disorders: Yes (IRREGULAR HEART BEAT) Hx Psychiatric Problems: No Hx Miscellaneous Medical Probl: Yes (HODGKIN'S LYMPHOMA 1995, CHEMOTHERAY FOR 6 MONTHS( LAST CHEMO ABOUT 1996)) Hx Alcohol Use: Yes (SOCIAL DRINKER) Hx Substance Use: No Hx Tobacco Use: Yes (7 CIGARETTES) Physical Exam Vitals Vital Signs Date Time Temp Pulse Resp B/P Pulse Ox O2 Delivery O2 Flow Rate FiO2 06/29/17 16:45 98.6 84 20 118/69 98 Room Air 06/29/17 15:25 98.6 111 20 92/55 98 Physical Exam Const: No acute distress. Dehydrated Head: Atraumatic. Eyes: Normal Conjunctiva. ENT: Normal External Ears, Nose and Mouth. Neck: Full range of motion. No meningismus. Resp: Clear to auscultation bilaterally. Cardio: Regular tachycardic Abd: Soft, non distended, normal bowel sounds, mild epigastric tenderness, no right lower quadrant, right upper quadrant or CVA tenderness Skin: No petechiae or rashes. Back: No midline or flank tenderness. Ext: No cyanosis, or edema. Neur: Awake and alert. No focal deficit Psych: Normal Mood and Affect. Result Diagram: 06/29/17 1605 06/29/17 1605 Results 24 hrs Laboratory Tests Test 06/29/17 16:05 White Blood Count 7.010^3/ul Red Blood Count 5.9310^6/ul Hemoglobin 16.8g/dl Hematocrit 49.8% Mean Corpuscular Volume 84.0fl Mean Corpuscular Hemoglobin 28.3pg Mean Corpuscular Hemoglobin Concent 33.7g/dl Red Cell Distribution Width 14.7% Platelet Count 04263^3/UL Mean Platelet Volume 10.5fl Neutrophils % 58.1% Lymphocytes % 25.9% Monocytes % 14.2% Eosinophils % 1.0% Basophils % 0.4% Nucleated Red Blood Cells % 0.0/100WBC Neutrophils # (Manual) 410^3/ul Lymphocytes # 1.810^3/ul Monocytes # 1.010^3/ul Eosinophils # 0.110^3/ul Basophils # 0.010^3/ul Nucleated Red Blood Cells # 0.010^3/ul Sodium Level 137mmol/L Potassium Level 3.3mmol/L Chloride Level 88mmol/L Carbon Dioxide Level 35mmol/L Anion Gap 17 Blood Urea Nitrogen 22mg/dl Creatinine 2.21mg/dl Glucose Level 133mg/dl Calcium Level 10.9mg/dl Total Bilirubin 0.5mg/dl Direct Bilirubin 0.00mg/dl Indirect Bilirubin 0.5mg/dl Aspartate Amino Transf (AST/SGOT) 23IU/L Alanine Aminotransferase (ALT/SGPT) 28IU/L Alkaline Phosphatase 91IU/L Total Protein 9.2g/dl Albumin 4.8g/dl Globulin 4.40g/dl Albumin/Globulin Ratio 1.09 Lipase 511U/L Ethyl Alcohol Level < 10.0mg/dl Current Medications Medications (Trade) Dose Ordered Sig/Servando Route PRN Reason Start Time Stop Time Status Last Admin Dose Admin Sodium Chloride (NS) 1,000 ml @ 1,000 mls/hr Q1H STAT IV 06/29/17 15:47 06/29/17 16:46 DC 06/29/17 16:06 Ondansetron HCl 4 mg 4 mg ONCE STAT IV 06/29/17 15:47 8/23/17 15:49 DC 06/29/17 16:06 Sodium Chloride (NS) 1,000 ml @ 1,000 mls/hr Q1H ONCE IV 06/29/17 16:00 06/29/17 18:02 DC 06/29/17 16:44 Baclofen (Lioresal) 10 mg ONCE ONCE PO 06/29/17 16:00 06/29/17 16:01 DC 06/29/17 16:06 Diphenhydramine HCl (Benadryl) 25 mg ONCE ONCE IV 06/29/17 17:30 06/29/17 17:31 DC Chlorpromazine (Thorazine) 25 mg ONCE ONCE IM 06/29/17 17:30 06/29/17 17:31 DC 06/29/17 17:47 Potassium Chloride (Klor-Con 10) 10 meq ONCE ONCE PO 06/29/17 17:30 06/29/17 17:31 DC 06/29/17 17:47 Morphine Sulfate (morphine) 2 mg ONCE ONCE IV 06/29/17 18:00 06/29/17 18:02 DC 06/29/17 18:36 Ondansetron HCl (Zofran Inj) 4 mg ONCE STAT IV 06/29/17 18:00 06/29/17 18:02 DC 06/29/17 18:36 Procedures/[place] [address] Radiology Main Line: [phone] DIAGNOSTIC IMAGING REPORT Patient: SURYA MAY : 1955 Age: 62 Sex: M MR #: [id number] DOS: 06/29/17 [facility] Ordering MD: DEBI THURSTON MD Location: E/R Room/Bed: PROCEDURE: Retroperitoneal US. CLINICAL INDICATION: Acute kidney insufficiency TECHNIQUE: Multiple sonographic images of the retroperitoneum were obtained. The images were reviewed on a PACS workstation. COMPARISON: No prior studies are available for comparison. FINDINGS: The right kidney measures 9.9 x 3.8 x 4.6 cm. The left kidney measures 7.8 x 4.8 x 4.0 cm. There is thinning of the right renal cortex to 7 mm. The renal parenchymal echotexture is normal. There is no hydronephrosis. There is no focal renal mass or calcification seen. The bladder is underdistended though grossly unremarkable. Prevoid bladder volume (mL): 66 The prostate measures 5.3 x 4.3 x 4.9 cm and is noted to bulge into the base of the bladder. Prostatic volume is 58 cc. IMPRESSION: Asymmetric atrophy of the right kidney. No hydronephrosis bilaterally. The prostate is enlarged with a volume of 58 cc and is noted to bulge into the base of the bladder. Correlation for symptoms of bladder outlet obstruction are recommended. The bladder itself is underdistended though grossly unremarkable. RPTAT: EE Physician Charisma Date Time Electronically viewed and signed by Moi Keller Physician on 06/29/2017 18:27 RA/ CC: DEBI THURSTON MD MEDICAL MAKING DECISION: The patient is a 62-year-old male, presenting with persistent typical for 2 days, acute kidney injury, acute hypokalemia. He was treated with 1 L normal saline for acute dehydration, baclofen 10 mg p.o. and Thorazine 25 mg IM for acute a persistent hiccup with good response, potassium chloride 10 mEq p.o. for l acute hypokalemia, morphine 2 mg IV for pain, Zofran 4 mg IV for nausea with good response The differential diagnoses considered include but are not limited to recurrent malignancy, obstructive uropathy, bladder outlet obstruction, cystitis, pyelonephritis Departure Diagnosis: Primary Impression: Hiccoughs Additional Impressions: Acute renal failure Hypokalemia Abdominal pain Condition: Stable Comments I discussed the findings with the patient. I discussed the patient with his physician Dr. Conrad who was made aware of the lab, the treatment, the patient condition. He requested for a CT scan of the abdomen and would come to the ER to evaluate patient The patient declined a CT scan of abdomen and the pelvic. Risks, benefits, alternatives were explained to the patient. Risks include but not limited to and permanent disability DEBI THURSTON MD Jun 29, 2017 15:35
[2017-06-29] MEDS ORDERED: ONDANSETRON 4 MG INJ IV STA ×2 (15:47→18:00)
[2017-06-29] MEDS ORDERED: SOD CHLORIDE 0.9% 1,000 ML IV STA (15:47)
[2017-06-29] MEDS ORDERED: SOD CHLORIDE 0.9% 1,000 ML IV ONE (16:00)
[2017-06-29] MEDS ORDERED: BACLOFEN 10 MG TAB PO ONE (16:00)
[2017-06-29] MEDS ORDERED: ASPI-664 PO (16:17)
[2017-06-29 16:24] LABS: BASOPHILS % 0.4 % (0.0-2.0); EOSINOPHILS # 0.1 10^3/ul (0.0-0.5); HEMATOCRIT 49.8 % (42.0-52.0); HEMOGLOBIN 16.8 g/dl (14.0-18.0); LYMPHOCYTES # 1.8 10^3/ul (0.8-2.9); LYMPHOCYTES % 25.9 % (15.0-51.0); MEAN CORPUSCULAR HEMOGLOBIN 28.3 pg (29.0-33.0); MEAN CORPUSCULAR HGB CONC 33.7 g/dl (32.0-37.0); MEAN PLATELET VOLUME 10.5 fl (7.4-10.4); MONOCYTES % 14.2 % (0.0-11.0); NEUTROPHILS % 58.1 % (39.0-77.0); PLATELET COUNT 239 10^3/UL (140-415); RED BLOOD COUNT 5.93 10^6/ul (4.70-6.10); RED CELL DISTRIBUTION WIDTH 14.7 % (11.5-14.5)
[2017-06-29 16:45] VITALS: BP 118/69; PULSE 84; RESP 20; TEMP 98.6
[2017-06-29 17:17] LABS: ALANINE AMINOTRANSFERASE 28 IU/L (13-69); ALBUMIN 4.8 g/dl (3.3-4.9); ALBUMIN/GLOBULIN RATIO 1.09; ALKALINE PHOSPHATASE 91 IU/L (42-121); ANION GAP 17 (8-16); ASPARTATE AMINO TRANSFERASE 23 IU/L (15-46); BILIRUBIN,INDIRECT 0.5 mg/dl (0-1.1); BILIRUBIN,TOTAL 0.5 mg/dl (0.2-1.3); BLOOD UREA NITROGEN 22 mg/dl (7-20); CALCIUM 10.9 mg/dl (8.4-10.2); CARBON DIOXIDE 35 mmol/L (21-31); CHLORIDE 88 mmol/L (97-110); CREATININE 2.21 mg/dl (0.61-1.24); GLUCOSE 133 mg/dl (70-220); POTASSIUM 3.3 mmol/L (3.5-5.1); SODIUM 137 mmol/L (135-144); TOTAL PROTEIN 9.2 g/dl (6.1-8.1)
[2017-06-29 17:18] LABS: ETHANOL < 10.0 mg/dl
[2017-06-29] MEDS ORDERED: POTASSIUM CHLORIDE (SR) 10 MEQ TAB PO ONE (17:30)
[2017-06-29] MEDS ORDERED: CHLORPROMAZINE 25 MG INJ IM ONE (17:30)
[2017-06-29] MEDS: DIPHENHYDRAMINE 50 MG INJ IV ONE ×2 (17:47→17:54)
[2017-06-29] MEDS ORDERED: morphine 2 MG INJ IV ONE (18:00)
--- NOTE | 2017-06-29 18:27 | RADRPT ---
PROCEDURE: Retroperitoneal US. CLINICAL INDICATION: Acute kidney insufficiency TECHNIQUE: Multiple sonographic images of the retroperitoneum were obtained. The images were revi ewed on a PACS workstation. COMPARISON: No prior studies are available for comparison. FINDINGS: The right kidney measures 9.9 x 3.8 x 4.6 cm. The left kidney measures 7.8 x 4.8 x 4.0 cm. There is thinning of the right renal cortex to 7 mm. The renal parenchymal echotexture is normal. There is no hydronephrosis. There is no focal renal mass or calcification seen. The bladder is underdistended though grossly unremarkable. Prevoid bladder volume (mL): 66 The prostate measures 5.3 x 4.3 x 4.9 cm and is noted to bulge into the base of the bladder. Prostat ic volume is 58 cc. IMPRESSION: Asymmetric atrophy of the right kidney. No hydronephrosis bilaterally. The prostate is enlarged with a volume of 58 cc and is noted to bulge into the base of the bladder. Correlation for symptoms of bladder outlet obstruction are recommended. The bladder itself is underdistended though grossly unremarkable. RPTAT: EE Physician Charisma Date Time Electronically viewed and signed by Physician Charisma on 06/29/2017 18:27 /
== END 2017-06-29 19:30 | disposition left against medical advice (07) ==
LOC: E/R 15:18
DX: R06.6 Hiccough (principal); N17.9 Acute kidney failure, unspecified; E87.6 Hypokalemia; R10.13 Epigastric pain; F17.210 Nicotine dependence, cigarettes, uncomplicated; R11.2 Nausea with vomiting, unspecified; Z79.82 Long term (current) use of aspirin; Z85.71 Personal history of Hodgkin lymphoma
CPT/HCPCS: 36415; 76775; 80053; 80306; 83690; 85025; 96372; 96374; 96375; 96376; 99285; J1200; J2270; J2405; J3230; J7030

== ENCOUNTER 2017-08-01 09:49 | Emergency (ER) | payer MEDICARE, OTHER ==
[~2017-08-01] VITALS: Ht 177.8 cm; Wt 64.0 kg
[~2017-08-01 09:49] MED LIST changes: +ASPI-664 PO; -ASPI81TA3 PO; -HYDR-902 PO; -ONDA4TAB14 PO; -THO25 PO
[2017-08-01 10:01] VITALS: Ht 177.8 cm; Wt 64.0 kg
[2017-08-01] MEDS ORDERED: HYDROmorphONE 1 MG/ML SYG IM STA (11:22)
[2017-08-01] MEDS ORDERED: ONDANSETRON (ODT) 4 MG TAB ODT STA (11:22)
[2017-08-01] MEDS ORDERED: HYDROCODONE/APAP (10/325) TAB PO ONE (11:30)
[2017-08-01] MEDS ORDERED: CHLORPROMAZINE 25 MG INJ IM ONE (11:30)
[2017-08-01] MEDS ORDERED: THO25 PO (12:09)
[2017-08-01] MEDS ORDERED: HYDR-902 PO (12:09)
--- NOTE | 2017-08-01 12:11 | ERD ---
ER Documentation Chief Complaint Date/Time DATE: 08/01/17 TIME: 12:10 Chief Complaint pt bib self with c/o hiccups and abd pain since yesterday HPI This is a 62-year-old male with a history of hiccups. The patient states she has had intractable hiccups for the past 4 days. He says his abdominal muscles are sore from hiccuping so much. He says he cannot tolerate anything orally because it makes his hiccups worse. He says his been admitted to the hospital for the same reason in the past. Has no chest pain or shortness of breath. The patient states that Thorazine orally does not work. Patient is asking for pain medication for his abdominal soreness ROS All systems reviewed and are negative except as per history of present illness. Medications Home Meds Active Scripts Hydrocodone/Acetaminophen ([place] 10-325 Tablet) 1 Each Tablet, 1 TAB PO Q6H Y for PAIN, #20 TAB Prov:KAYLEIGH RIVERA DO 08/01/17 Chlorpromazine Hcl* (Thorazine*) 25 Mg Tab, 25 MG PO TID for hiccups, #20 TAB Prov:KAYLEIGH RIVERA DO 08/01/17 Reported Medications Aspirin (Low Dose Aspirin) 81 Mg Tablet.dr, 81 MG PO DAILY, #30 TAB 06/29/17 Allergies Allergies: Coded Allergies: bleomycin (Verified Allergy, Severe, SEVERE SHIVERING, SHALLOW BREATHING , 06/29/17) THIS MEDICATION WAS TAKEND URING FIRST SESSION OF CHEMO PMhx/Soc History of Surgery: Yes ([id number], SMALL CYST REMOVAL(LEFT EAR)) Anesthesia Reaction: No Hx Neurological Disorder: No Hx Respiratory Disorders: No Hx Cardiac Disorders: Yes (IRREGULAR HEART BEAT) Hx Psychiatric Problems: No Hx Miscellaneous Medical Probl: Yes (HODGKIN'S LYMPHOMA 1995, CHEMOTHERAY FOR 6 MONTHS( LAST CHEMO ABOUT 1996)) Hx Alcohol Use: Yes (SOCIAL DRINKER) Hx Substance Use: No Hx Tobacco Use: Yes (7 CIGARETTES) Smoking Status: Current every day smoker FmHx Family History: No coronary disease Physical Exam Vitals Vital Signs Date Time Temp Pulse Resp B/P Pulse Ox O2 Delivery O2 Flow Rate FiO2 08/01/17 10:01 98.1 112 20 153/98 99 Physical Exam Const: Well-developed, well-nourished Head: Atraumatic, normocephalic Eyes: Normal Conjunctiva, PERRLA, EOMI, normal sclera, no nystagmus ENT: Normal External Ears, Nose and Mouth, moist mucus membranes. Neck: Full range of motion. No meningismus, no lymphadenopathy. Resp: Clear to auscultation bilaterally, no wheezing, rhonchi, rales Cardio: Regular rate and rhythm, no murmurs, S1 S2 present Abd: Soft, mild diffuse tenderness, non distended. Normal bowel sounds , no guarding or rebound, no pulsitile abdominal masses or bruits Skin: No petechiae or rashes, no ecchymosis , no maculopapular rash Back: No midline or flank tenderness Ext: No cyanosis, or edema, FROM x 4, normal inspection, neurovascularly intact x 4 Neur: Awake and alert, STR 5/5 x 4, sensation intact x 4, no focal findings, cerebellum intact Psych: Normal Mood and Affect Results 24 hrs Current Medications Medications (Trade) Dose Ordered Sig/Servando Route PRN Reason Start Time Stop Time Status Last Admin Dose Admin Acetaminophen/ Hydrocodone Bitart ([place] (10/325)) 1 tab ONCE ONCE PO 08/01/17 11:30 08/01/17 11:31 DC Chlorpromazine (Thorazine) 25 mg ONCE ONCE IM 08/01/17 11:30 08/01/17 11:31 DC 08/01/17 11:31 Hydromorphone HCl (Dilaudid) 1 mg ONCE STAT IM 08/01/17 11:22 08/01/17 11:24 DC 08/01/17 11:36 Ondansetron HCl (Zofran Odt) 4 mg ONCE STAT ODT 08/01/17 11:22 08/01/17 11:24 DC 08/01/17 11:32 Procedures/MDM 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 The nurse also states the patient has not had one hiccups since he has been here. I feel the patient's likely drug-seeking that I cannot confirm. Departure Diagnosis: Primary Impression: Hiccups Condition: Stable Patient Instructions: KAYLEIGH Espinoza DO Aug 01, 2017 12:11
[2017-08-01 12:53] VITALS: BP 138/79; PULSE 72; RESP 17; TEMP 98.6
== END 2017-08-01 12:55 | disposition home or self-care (01) ==
LOC: E/R 09:49
DX: R06.6 Hiccough (principal); F17.210 Nicotine dependence, cigarettes, uncomplicated; R40.2252 Coma scale, best verbal response, oriented, at arrival to emergency department; R40.2362 Coma scale, best motor response, obeys commands, at arrival to emergency department; Z85.71 Personal history of Hodgkin lymphoma; Z79.82 Long term (current) use of aspirin
CPT/HCPCS: 99284; J1170; J3230

== ENCOUNTER 2017-08-08 13:21 | Emergency (ER) | payer MEDICARE, OTHER ==
[~2017-08-08] VITALS: Ht 177.8 cm; Wt 63.0 kg
[~2017-08-08 13:21] MED LIST changes: +HYDR-902 PO; +THO25 PO
[2017-08-08 13:24] VITALS: Ht 177.8 cm; Wt 63.0 kg
[2017-08-08] MEDS ORDERED: ONDANSETRON 4 MG INJ IV STA (18:00)
[2017-08-08] MEDS ORDERED: morphine 4 MG/ML VIAL IV STA ×2 (18:00→21:18)
[2017-08-08] MEDS ORDERED: FAMOTIDINE 20 MG INJ IV STA (18:00)
[2017-08-08] MEDS ORDERED: SOD CHLORIDE 0.9% 1,000 ML IV STA (18:00)
[2017-08-08 19:16] LABS: BASOPHILS % 0.7 % (0.0-2.0); EOSINOPHILS # 0.1 10^3/ul (0.0-0.5); HEMATOCRIT 53.6 % (42.0-52.0); HEMOGLOBIN 16.9 g/dl (14.0-18.0); LYMPHOCYTES # 1.5 10^3/ul (0.8-2.9); LYMPHOCYTES % 24.6 % (15.0-51.0); MEAN CORPUSCULAR HEMOGLOBIN 27.2 pg (29.0-33.0); MEAN CORPUSCULAR HGB CONC 31.5 g/dl (32.0-37.0); MEAN CORPUSCULAR VOLUME 86.3 fl (82.0-101.0); MEAN PLATELET VOLUME 11.4 fl (7.4-10.4); MONOCYTE # 0.6 10^3/ul (0.3-0.9); NEUTROPHIL # 3.8 10^3/ul (1.6-7.5); NEUTROPHILS % 63.4 % (39.0-77.0); PLATELET COUNT 284 10^3/UL (140-415); RED BLOOD COUNT 6.21 10^6/ul (4.70-6.10)
[2017-08-08 19:23] LABS: ADD UMIC YES; UR ASCORBIC ACID 20 mg/dL (NEGATIVE); UR BILIRUBIN (Dip) NEGATIVE (NEGATIVE); UR BLOOD (Dip) NEGATIVE (NEGATIVE); UR CLARITY SLIGHTLY CLOUDY (CLEAR); UR COLOR YELLOW (YELLOW); UR GLUCOSE (Dip) NEGATIVE (NEGATIVE); UR KETONES (Dip) 1+ mg/dL (NEGATIVE); UR LEUKOCYTE ESTERASE (Dip) NEGATIVE Leu/ul (NEGATIVE); UR MUCUS FEW /HPF (NONE SEEN); UR NITRITE (Dip) NEGATIVE (NEGATIVE); UR RBC 9 /HPF (0-5); UR SPECIFIC GRAVITY (Dip) 1.027 (1.003-1.030); UR TOTAL PROTEIN (Dip) 2+ mg/dl (NEGATIVE); UR UROBILINOGEN (Dip) NEGATIVE (NEGATIVE)
[2017-08-08 19:37] LABS: ALANINE AMINOTRANSFERASE 24 IU/L (13-69); ALBUMIN 4.7 g/dl (3.3-4.9); ALBUMIN/GLOBULIN RATIO 0.95; ALKALINE PHOSPHATASE 85 IU/L (42-121); ANION GAP 16 (8-16); ASPARTATE AMINO TRANSFERASE 27 IU/L (15-46); BILIRUBIN,INDIRECT 0.4 mg/dl (0-1.1); BILIRUBIN,TOTAL 0.4 mg/dl (0.2-1.3); BLOOD UREA NITROGEN 22 mg/dl (7-20); CALCIUM 10.1 mg/dl (8.4-10.2); CARBON DIOXIDE 33 mmol/L (21-31); CHLORIDE 100 mmol/L (97-110); CREATININE 1.48 mg/dl (0.61-1.24); GLUCOSE 99 mg/dl (70-220); POTASSIUM 4.1 mmol/L (3.5-5.1); SODIUM 145 mmol/L (135-144); TOTAL PROTEIN 9.6 g/dl (6.1-8.1)
[2017-08-08 19:51] LABS: TROPONIN-I < 0.012 ng/ml (0.00-0.12)
[2017-08-08] MEDS ORDERED: SOD CHLORIDE 0.9% 100 ML ONE (20:25)
[2017-08-08] MEDS ORDERED: IODIXANOL LOCM 100 ML BTL ONE (20:25)
--- NOTE | 2017-08-08 22:05 | RADRPT ---
PROCEDURE: CT Abdomen and Pelvis with contrast. CLINICAL INDICATION: Abdominal pain. Recent biliary stent placement. TECHNIQUE: CT scan of the abdomen and pelvis with contrast was performed on a multi-detector high- resolution CT scanner. The patient was scanned following the uncomplicated intravenous administrati on of 75 cc of Visipaque 320. Coronal and sagittal reformatted images were obtained from the axial source images. Images were reviewed on a high-resolution PACS workstation. The total exam CTDI equal s 7.9 397.36 mGy and the total exam DLP equals MRI abdomen 05/23/2017 mGy-cm. One or more of the following dose reduction techniques were used: Automated exposure control. Adjustment of the mA and/or kV according to patient size. Use of iterative reconstruction technique. COMPARISON: MRI abdomen 05/23/2017. CT abdomen and pelvis 08/24/2015. FINDINGS: CT abdomen: The lung bases are remarkable for nodular scarring in the medial left lung base, unchanged. There is evidence of air trapping in the right middle lobe, lingular segment and anterior left lung base. T he heart size is normal, without pericardial thickening or effusion. There has been interval placement of the metallic stent extending from the left biliary duct into th e duodenum. There is pneumobilia. There has been interval resolution of cystic structure in the panc reaticoduodenal groove. Redemonstrated is dilated irregular pancreas with parenchymal and intraducta l calcifications in keeping with chronic pancreatitis. There is no evidence of acute pancreatitis. The liver is normal in size and density without focal mass or intrahepatic biliary dilatation. The s pleen is surgically absent. The gallbladder is remarkable for multiple sub centimeter layering galls tones. There is no evidence for biliary dilatation. The adrenal glands are symmetric and normal. T he kidneys are symmetrically unremarkable as well. No renal calculus or obstructive uropathy or mas s lesion is seen. The aorta is of normal caliber. Aortic vascular calcifications are present. There is no retroperit bruner lymphadenopathy. The juan carlos hepatis region is clear. The bowel and mesentery, as visualized, are equally unremarkable. CT pelvis: The small bowel loops situated within the pelvis are unremarkable. There is moderate prostatomegaly . The pelvic sidewalls and inguinal regions are clear. The sigmoid colon and rectum are remarkable for sigmoid diverticulosis. No mass, lymphadenopathy, or free fluid is seen. No acute inflammatio n is seen. The bladder is normal. The surrounding osseous structures are unremarkable. No osteolyt ic or osteoblastic lesion is detected. IMPRESSION: 1. Metallic CBD stent in satisfactory position extending into the duodenum. Pneumobilia. Interval resolution of a cystic structure in the pancreaticoduodenal groove. 2. Findings of chronic pancreatitis. No evidence of acute pancreatitis. 3. Cholelithiasis without evidence of acute cholecystitis. 4. Scattered colonic diverticula without evidence of acute diverticulitis. 5. Aortoiliac atherosclerosis. 6. Moderate prostatomegaly. RPTAT: HHO .Rosa Kumar MD, MD Date Time Electronically viewed and signed by .Rosa Kumar MD, on 08/08/2017 22:05 .O/
--- NOTE | 2017-08-08 22:12 | ERD ---
ER Documentation Chief Complaint Date/Time DATE: 08/08/17 TIME: 22:11 Chief Complaint ap with sob and n/v; x 12 days HPI This is a 62-year-old male who presents to the emergency room for evaluation of abdominal pain, nausea and vomiting. The patient states her symptoms have been present for approximately 7 days duration and states that his abdominal pains in the midportion of his abdomen. He states that he has had this before and recently had a stent placed by his gallbladder. The patient came to the ER today for evaluation. He denies any recent alcohol use at this time with a states that he has had previous pancreatitis secondary to alcohol. ROS All systems reviewed and are negative except as per history of present illness. Medications Home Meds Active Scripts Hydrocodone/Acetaminophen ([place] 10-325 Tablet) 1 Each Tablet, 1 TAB PO Q6H Y for PAIN, #20 TAB Prov:KAYLEIGH RIVERA DO 08/01/17 Chlorpromazine Hcl* (Thorazine*) 25 Mg Tab, 25 MG PO TID for hiccups, #20 TAB Prov:KAYLEIGH RIVERA DO 08/01/17 Reported Medications Aspirin (Low Dose Aspirin) 81 Mg Tablet.dr, 81 MG PO DAILY, #30 TAB 06/29/17 Allergies Allergies: Coded Allergies: bleomycin (Verified Allergy, Severe, SEVERE SHIVERING, SHALLOW BREATHING , 08/08/17) THIS MEDICATION WAS TAKEND URING FIRST SESSION OF CHEMO PMhx/Soc History of Surgery: Yes ([id number], SMALL CYST REMOVAL(LEFT EAR)) Anesthesia Reaction: No Hx Neurological Disorder: No Hx Respiratory Disorders: No Hx Cardiac Disorders: Yes (IRREGULAR HEART BEAT) Hx Psychiatric Problems: No Hx Miscellaneous Medical Probl: Yes (HODGKIN'S LYMPHOMA 1995, CHEMOTHERAY FOR 6 MONTHS( LAST CHEMO ABOUT 1996)) Hx Alcohol Use: Yes (SOCIAL DRINKER) Hx Substance Use: No Hx Tobacco Use: Yes (7 CIGARETTES) Smoking Status: Current every day smoker Physical Exam Vitals Vital Signs Date Time Temp Pulse Resp B/P Pulse Ox O2 Delivery O2 Flow Rate FiO2 08/08/17 18:30 98.3 77 18 138/82 97 Room Air 08/08/17 13:24 97.7 99 18 157/109 97 Physical Exam INITIAL VITAL SIGNS: Reviewed by me GENERAL: The patient is well developed and appropriate for usual state of health in no apparent distress HEENT: Pupils equal, round, and reactive to light. EOMI. There is no scleral icterus. NECK: C-spine is soft and supple, there is no meningismus. There is no cervical lymphadenopathy. LUNGS: Clear to auscultation bilaterally. There are no rales, wheezes or rhonchi. HEART: Regular rate and rhythm, no murmurs, clicks, rubs or gallops. ABDOMEN: Gastric tenderness to palpation, negative Duran sign, otherwise soft, non-tender, non-distended. There are bowel sounds in all four quadrants. No rebound or guarding. EXTREMITIES: There is no peripheral cyanosis or edema. No focal swelling or erythema. NEUROLOGICAL: The patient moves all four extremities with 5/5 strength. Cranial nerves II - XII are intact. Normal gait. Alert and oriented SKIN: There is no apparent rash or petechiae. HEME/LYMPHATIC: There is no evidence of excessive bruising or lymphedema. PSYCHIATRIC: The patient does not appear anxious or depressed. Result Diagram: 08/08/17184908/08/171849 Results 24 hrs Laboratory Tests Test 08/08/17 18:50 White Blood Count 6.010^3/ul Red Blood Count 6.2110^6/ul Hemoglobin 16.9g/dl Hematocrit 53.6% Mean Corpuscular Volume 86.3fl Mean Corpuscular Hemoglobin 27.2pg Mean Corpuscular Hemoglobin Concent 31.5g/dl Red Cell Distribution Width 16.0% Platelet Count 58731^3/UL Mean Platelet Volume 11.4fl Neutrophils % 63.4% Lymphocytes % 24.6% Monocytes % 10.0% Eosinophils % 1.0% Basophils % 0.7% Nucleated Red Blood Cells % 0.0/100WBC Neutrophils # 3.810^3/ul Lymphocytes # 1.510^3/ul Monocytes # 0.610^3/ul Eosinophils # 0.110^3/ul Basophils # 0.010^3/ul Nucleated Red Blood Cells # 0.010^3/ul Urine Color YELLOW Urine Clarity SLIGHTLY CLOUDY Urine pH 6.0 Urine Specific [place] 1.027 Urine Ketones 1+mg/dL Urine Nitrite NEGATIVEmg/dL Urine Bilirubin NEGATIVEmg/dL Urine Urobilinogen NEGATIVEmg/dL Urine Leukocyte Esterase NEGATIVELeu/ul Urine Microscopic RBC 9/HPF Urine Microscopic WBC 4/HPF Urine Mucus FEW/HPF Urine Hemoglobin NEGATIVEmg/dL Urine Glucose NEGATIVEmg/dL Urine Total Protein 2+mg/dl Sodium Level 145mmol/L Potassium Level 4.1mmol/L Chloride Level 100mmol/L Carbon Dioxide Level 33mmol/L Anion Gap 16 Blood Urea Nitrogen 22mg/dl Creatinine 1.48mg/dl Glucose Level 99mg/dl Calcium Level 10.1mg/dl Total Bilirubin 0.4mg/dl Direct Bilirubin 0.00mg/dl Indirect Bilirubin 0.4mg/dl Aspartate Amino Transf (AST/SGOT) 27IU/L Alanine Aminotransferase (ALT/SGPT) 24IU/L Alkaline Phosphatase 85IU/L Troponin I < 0.012ng/ml Total Protein 9.6g/dl Albumin 4.7g/dl Globulin 4.90g/dl Albumin/Globulin Ratio 0.95 Lipase 330U/L Current Medications Medications (Trade) Dose Ordered Sig/Servando Route PRN Reason Start Time Stop Time Status Last Admin Dose Admin Sodium Chloride (NS) 1,000 ml @ 1,000 mls/hr Q1H STAT IV 08/08/17 18:00 08/08/17 18:59 DC 08/08/17 18:00 Morphine Sulfate (morphine) 4 mg ONCE STAT IV 08/08/17 18:00 08/08/17 18:01 DC 08/08/17 19:03 Ondansetron HCl (Zofran Inj) 4 mg ONCE STAT IV 08/08/17 18:00 08/08/17 18:01 DC 08/08/17 18:00 Famotidine (Pepcid Iv) 20 mg ONCE STAT IV 08/08/17 18:00 08/08/17 18:01 DC 08/08/17 18:00 IV Flush 10 ml 10 ml STK-MED ONCE .ROUTE 08/08/17 20:25 08/08/17 20:26 DC 08/08/17 20:52 Sodium Chloride (NS) 100 ml @ ud STK-MED ONCE .ROUTE 08/08/17 20:25 08/08/17 20:26 DC 08/08/17 20:52 Iodixanol (Visipaque Locm) 100 ml STK-MED ONCE .ROUTE 08/08/17 20:25 08/08/17 20:26 DC 08/08/17 20:52 Morphine Sulfate (morphine) 4 mg ONCE STAT IV 08/08/17 21:18 08/08/17 21:19 DC 08/08/17 21:39 Procedures/MDM CT abdomen pelvis with IV contrast: 1. Metallic CBD stent in satisfactory position extending into the duodenum. Pneumobilia. Interval resolution of a cystic structure in the pancreaticoduodenal groove. 2. Findings of chronic pancreatitis. No evidence of acute pancreatitis. 3. Cholelithiasis without evidence of acute cholecystitis. 4. Scattered colonic diverticula without evidence of acute diverticulitis. 5. Aortoiliac atherosclerosis. 6. Moderate prostatomegaly. This 62-year-old male presents to the emergency room for evaluation of abdominal pain. The patient localizes the pain to the midportion of her abdomen. This patient does have a stent placed in his common bile duct and given his pain I did obtain a CAT scan which shows that the stent is in satisfactory position. The patient does have chronic pancreatitis and has a lipase of 300 today. The patient was given IV fluids and was given pain medicine, morphine in the emergency room. When I reevaluated him he does say he is feeling better at this time. He is tolerating p.o. and has no elevations in his transaminases or in his white blood cell count. The patient will be discharged at this time with a prescription for [place] and Zofran. Departure Diagnosis: Primary Impression: Abdominal pain Additional Impression: Chronic pancreatitis Condition: Stable ARPAN LANG DO Aug 08, 2017 22:12
[2017-08-08] MEDS ORDERED: ONDA4TAB8 PO (22:16)
[2017-08-08] MEDS ORDERED: HYDR-906 PO (22:16)
[2017-08-08 22:31] VITALS: BP 161/95; PULSE 80; RESP 16; TEMP 98
== END 2017-08-08 22:33 | disposition home or self-care (01) ==
LOC: E/R 13:21
DX: K86.1 Other chronic pancreatitis (principal); F17.210 Nicotine dependence, cigarettes, uncomplicated
CPT/HCPCS: 36415; 74177; 80053; 81001; 83690; 84484; 85025; 96374; 96375; 96376; 99285; J2270; J2405; J7030; Q9967

== ENCOUNTER 2018-03-09 08:57 | Emergency (ER) | END 2018-03-09 13:01 | disposition home or self-care (01) ==

== ENCOUNTER 2018-03-10 13:21 | Emergency (ER) | END 2018-03-10 16:38 | disposition home or self-care (01) ==

== ENCOUNTER 2018-03-31 12:27 | Emergency (ER) | END 2018-03-31 21:44 | disposition home or self-care (01) ==

== ENCOUNTER 2018-04-06 19:42 | Inpatient (IN) | END 2018-04-30 17:00 | disposition home or self-care (01) | DRG 853 ==

== ENCOUNTER 2019-02-25 11:44 | Emergency (ER) | payer MEDICARE, OTHER ==
[~2019-02-25] VITALS: Ht 165.1 cm; Wt 77.7 kg
[~2019-02-25 11:44] MED LIST changes: -ASPI-664 PO; +CARV25TA79 PO; -HYDR-902 PO; +ONDA4TAB14 PO; +OXYC30TA PO; +PROC10TA10 PO; -THO25 PO
[2019-02-25 11:50] VITALS: Ht 165.1 cm; Wt 77.7 kg
[2019-02-25] MEDS ORDERED: predniSONE 20 MG TAB PO ONE (12:00)
--- NOTE | 2019-02-25 12:02 | ERD ---
ER Documentation Chief Complaint Chief Complaint RIGHT FACIAL NUMBNESS,PARALYIS ONSET LAST NIGHT HPI This is a 64-year-old male who said that when he woke up this morning the right half of his face was paralyzed. He said he has no weakness or numbness to his arms or legs, no speech difficulty, no swallowing or visual difficulty. He has no hyperacusis, he has good sensation to the face. He has disrupted taste sensation as well. Denies recent head trauma or recent viral illness. ROS All systems reviewed and are negative except as per history of present illness. Medications Home Meds Active Scripts Carvedilol* (Carvedilol*) 25 Mg Tablet, 25 MG PO BID for 30 Days, #60 TAB Prov:HERBIE ORTIZ MD 04/30/18 Prochlorperazine* (Prochlorperazine*) 10 Mg Tablet, 5 MG PO Q6 PRN for NAUSEA AND/OR VOMITING, #20 TAB Prov:VIOLETTA BARRIENTOS MD 03/31/18 Ondansetron (Ondansetron Odt) 4 Mg Tab.rapdis, 4 MG PO Q6H PRN for NAUSEA AND/OR VOMITING, #20 TAB Prov:VIOLETTA BARRIENTOS MD 03/31/18 Reported Medications Oxycodone Hcl* (IR) (Oxycodone Hcl*) 30 Mg Tablet, 30 MG PO Q4H PRN for PAIN, TAB 04/06/18 Allergies Allergies: Coded Allergies: bleomycin (Verified Allergy, Severe, SEVERE SHIVERING, SHALLOW BREATHING , 04/06/18) THIS MEDICATION WAS TAKEND URING FIRST SESSION OF CHEMO PMhx/Soc History of Surgery: Yes (splenectomy 1996, ) Anesthesia Reaction: No Hx Neurological Disorder: No Hx Respiratory Disorders: No (collapsed lung hx) Hx Cardiac Disorders: No Hx Psychiatric Problems: No Hx Miscellaneous Medical Probl: No Hx Alcohol Use: Yes (sober) Hx Substance Use: No Hx Tobacco Use: Yes FmHx Family History: No coronary disease Physical Exam Vitals Vital Signs Date Temp Pulse Resp B/P (MAP) Pulse Ox O2 O2 Flow FiO2 Time Delivery Rate 02/25/19 97.5 85 18 150/90 99 11:50 (110) Physical Exam Const: Well-developed, well-nourished Head: Atraumatic, normocephalic Eyes: Normal Conjunctiva, PERRLA, EOMI, normal sclera, no nystagmus ENT: Normal External Ears, Nose and Mouth, moist mucus membranes. Neck: Full range of motion. No meningismus, no lymphadenopathy. Resp: Clear to auscultation bilaterally, no wheezing, rhonchi, rales Cardio: Regular rate and rhythm, no murmurs, S1 S2 present Abd: Soft, non tender x 4, non distended. Normal bowel sounds, no guarding or rebound, no pulsitile abdominal masses or bruits Skin: No petechiae or rashes, no ecchymosis , no maculopapular rash Back: No midline or flank tenderness Ext: No cyanosis, or edema, FROM x 4, normal inspection, neurovascularly intact x 4 Neur: Awake and alert, STR 5/5 x 4, sensation intact x 4, the patient has complete paralysis of the right side of the face, there is forehead involvement, he can only minimally close the right eye, there is good facial sensation to the entirety, cerebellum intact Psych: Normal Mood and Affect Results 24 hrs Current Medications Medications Dose Sig/Servando Start Time Status Last (Trade) Ordered Route PRN Stop Time Admin Dose Reason Admin Prednisone 60 mg ONCE ONCE 02/25/19 DC 02/25/19 (Prednisone) PO 12:00 12:07 02/25/19 12:01 Procedures/MDM MR #: [id number] DOS: 02/25/19 1157 Ordering MD: KAYLEIGH RIVERA DO Location: E/R Room/Bed: PROCEDURE: CT Brain without contrast. CLINICAL INDICATION: Right facial droop, query Jones's palsy? TECHNIQUE: A CT of the brain was performed on a multi-slice CT scanner utilizing axial imaging from the skull base through the vertex without intravenous contrast. Multiplanar reformatted images were made. One or more the following dose reduction techniques were utilized: Automated exposure control, adjustment of the mA/ or kV according to patient's size, or use of iterative reconstruction technique. DICOM images are available for review. The CTDIvol is 39.3 mGy and the DLP is 634.2 mGycm. COMPARISON: CT BRAIN 06/05/2016 from [facility]. FINDINGS: There is no intracranial hemorrhage, mass effect, or midline shift. No extra- axial fluid collection is seen. Mild atrophy is identified with compensatory ventricular and sulcal enlargement. Moderate - severe decreased attenuation is seen in the periventricular and deep white matter, compatible with microvascular ischemic disease. The dodson white matter differentiation is well preserved with no acute infarct detected. The osseous structures and visualized paranasal sinuses are unremarkable. IMPRESSION: 1. No evidence of acute intracranial pathology. The brain is stable in appearance. 2. Mild diffuse atrophy. 3. There is moderate - severe microvascular ischemic disease in the periventricular and deep white matter. RPTAT: HJAH .Suze Lora MD, MD Date Time Electronically viewed and signed by .Suze Lora MD, MD on 02/25/2019 12:50 .H/ CC: KAYLEIGH RIVERA DO [id number] Patient's CAT scan is unremarkable for any acute stroke. The patient has a classic presentation for Jones's palsy. I discussed with him this and warning signs to return. I extensively discussed with him the importance of eye care Will discharge with Lacri-Lube, Valtrex and prednisone Departure Diagnosis: Primary Impression: Jones's palsy Condition: Stable KAYLEIGH RIVERA DO Feb 25, 2019 12:02
[2019-02-25] MEDS ORDERED: MED4DP PO (13:03)
[2019-02-25] MEDS ORDERED: VALA500T PO (13:03)
[2019-02-25] MEDS ORDERED: LACR35O BOTH EYES (13:03)
[2019-02-25 13:33] VITALS: BP 155/85; PULSE 77; RESP 18
== END 2019-02-25 16:02 | disposition home or self-care (01) ==
LOC: E/R 11:44
DX: G51.0 Bell's palsy (principal); Z87.891 Personal history of nicotine dependence
CPT/HCPCS: 70450; 99284; J7512

== ENCOUNTER 2019-03-09 12:39 | Inpatient (IN) | payer MEDICARE, OTHER ==
[~2019-03-09] VITALS: Ht 177.8 cm; Wt 74.4 kg
[~2019-03-09 12:39] MED LIST changes: +LACR35O BOTH EYES; +MED4DP PO; +VALA500T PO
[2019-03-09] MEDS ORDERED: morphine 2 MG INJ IV STA (15:10)
[2019-03-09] MEDS ORDERED: FAMOTIDINE 20 MG INJ IV STA (15:10)
[2019-03-09] MEDS ORDERED: ONDANSETRON 4 MG INJ IV STA (15:10)
[2019-03-09] MEDS ORDERED: SOD CHLORIDE 0.9% 250 ML IV STA (15:10)
[2019-03-09] MEDS ORDERED: SOD CHLORIDE 0.9% 1,000 ML IV SCH (15:12)
[2019-03-09] MEDS ORDERED: ONDANSETRON 4 MG INJ IV PRN (15:30)
[2019-03-09] MEDS ORDERED: ACETAMINOPHEN 325 MG TAB PO PRN (15:30)
--- NOTE | 2019-03-09 15:49 | ERD ---
ER Documentation Chief Complaint Chief Complaint Referred for admission HPI 64-year-old male kindly referred by Dr. Maci Lr for admission. Mr. May has a history of hypertension, Jones's palsy, Hodgkin lymphoma and pancreatitis, and presents to the emergency department, complaining of 2 days with worsening of epigastric pain, described as dull, constant, radiating to the back, 05/16. The patient was recently diagnosed with right side facial palsy as well. He denies distal weakness, numbness or tingling, no fever or chills. No chest pain, no palpitations, no headache, no blurred vision. The patient feels that this is a recurrence of his pancreatitis. ROS All systems reviewed and are negative except as per history of present illness. Medications Home Meds Active Scripts Methylprednisolone* (Medrol* DOSE PACK) 4 Mg/Dose-Pack Tab.ds.pk, 4 MG PO . DIRECTED, #1 PACKET Prov:ROSIE RIVERAS Mundo. DO 02/25/19 Mineral Oil/Lanolin Oil (Lacri-Lube) 3.5 Gm Oint, 1 APPLIC BOTH EYES NEEDED PRN for DRY EYES, #1 EA Prov:ROSIE RIVERAS Mundo. DO 02/25/19 valAcyclovir Hcl* (valACYclovir Hcl*) 500 Mg Tablet, 1000 MG PO BID for 7 Days, TAB Prov:NIKI RIVERASTASHLEYS A. DO 02/25/19 Carvedilol* (Carvedilol*) 25 Mg Tablet, 25 MG PO BID for 30 Days, #60 TAB Prov:HERBIE ORTIZ MD 04/30/18 Prochlorperazine* (Prochlorperazine*) 10 Mg Tablet, 5 MG PO Q6 PRN for NAUSEA AND/OR VOMITING, #20 TAB Prov:VIOLETTA BARRIENTOS MD 03/31/18 Ondansetron (Ondansetron Odt) 4 Mg Tab.rapdis, 4 MG PO Q6H PRN for NAUSEA AND/OR VOMITING, #20 TAB Prov:VIOLETTA BARRIENTOS MD 03/31/18 Reported Medications Oxycodone Hcl* (IR) (Oxycodone Hcl*) 30 Mg Tablet, 30 MG PO Q4H PRN for PAIN, TAB 04/06/18 Allergies Allergies: Coded Allergies: bleomycin (Verified Allergy, Severe, SEVERE SHIVERING, SHALLOW BREATHING , 04/06/18) THIS MEDICATION WAS TAKEND URING FIRST SESSION OF CHEMO PMhx/Soc History of Surgery: Yes (splenectomy 1996, ) Anesthesia Reaction: No Hx Neurological Disorder: Yes (JONES'S PALSY) Hx Respiratory Disorders: No (collapsed lung hx) Hx Cardiac Disorders: No Hx Psychiatric Problems: No Hx Miscellaneous Medical Probl: Yes (HODGKIN'S LYMPHOMA, PANCREATITIS) Hx Alcohol Use: Yes (sober) Hx Substance Use: No Hx Tobacco Use: Yes Smoking Status: Former smoker FmHx Family History: No diabetes, No coronary disease Physical Exam Vitals Physical Exam Patient is in mild distress, vital signs stable. Alert and fully oriented. FACE: Facial asymmetry noticed, with paralysis of the right side. EYES: Inspection: Right eye with delayed eyelid closure, no corneal abrasions. PERRLA, EOMI, Sclera and conjunctiva appear normal. EARS: Canals clear, tympanic membranes WNL THROAT: Normal oropharynx. NECK: Supple, No lymphadenopathy. Full ROM without pain or tenderness. HEART: RRR, no rubs, murmurs, clicks or gallops. LUNGS: Clear to auscultation. ABDOMEN: Soft, tender in the epigastric area without definitive peritoneal signs, no masses or hepatosplenomegaly. EXTREMITIES: No edema bilaterally. BACK: Full ROM, no deformity, normal back exam NEURO: Right facial cranial nerve palsy, otherwise, no motor or sensory deficit Result Diagram: 03/09/19 1555 03/09/19 1555 Results 24 hrs Current Medications Medications Dose Sig/Servando Start Time Status Last (Trade) Ordered Route PRN Stop Time Admin Dose Reason Admin Sodium 250 ml @ Q1H STAT 03/09/19 DC 03/09/19 Chloride 250 mls/hr IV 15:10 03/09/19 15:56 16:09 Morphine 2 mg ONCE STAT 03/09/19 DC 03/09/19 Sulfate IV 15:10 03/09/19 15:55 (morphine) 15:12 Ondansetron 4 mg ONCE STAT 03/09/19 DC 03/09/19 HCl (Zofran IV 15:10 03/09/19 15:55 Inj) 15:12 Famotidine 20 mg ONCE STAT 03/09/19 DC 03/09/19 (Pepcid Iv) IV 15:10 03/09/19 15:55 15:12 Sodium 1,000 ml @ [id number] IV 03/09/19 DC 03/09/19 Chloride 80 mls/hr 15:12 03/09/19 16:23 18:24 EKG read by me: Rate/Rhythm: Regular rate and rhythm at a rate of 85 Intervals: Normal Nonspecific ST changes. No T wave inversion Impression: No evidence of acute ischemia or arrhythmia Patient: SURYA MAY : 1955 Age: 64 Sex: M MR #: [id number] DOS: 03/09/19 1542 Ordering MD: RICHARD WESTFALL MD Location: FT Room/Bed: PROCEDURE: XR Chest. CLINICAL INDICATION: Abdominal pain TECHNIQUE: PA and lateral views of the chest were obtained COMPARISON: CR CHEST 12/02/2018 FINDINGS: The heart and mediastinum are within normal limits. The lungs are clear. There is no pleural effusion or pneumothorax. The bones and soft tissues are unremarkable. RPTAT: AA IMPRESSION: No acute disease. Procedures/MDM Vital signs stable. Differential diagnosis include but not limited to: UTI, colitis, gastroenteritis, kidney stones, irritable bowel syndrome, inflammatory bowel syndrome, malabsorption syndrome, cholelithiasis, food intolerance, medication side effect, pancreatitis, diverticulitis, bowel obstruction. Physical examination and clinical presentation consistent most likely with acute renal insufficiency. During the ED course the patient remained stable, no new complaints. The patient received treatment with IV fluids and IV medications. Results and clinical impression discussed with the patient who agrees with management. The patient is stable to be [facility]. Instructions explained and given directly by me to the patient with acknowledgment and demonstrated understanding. Disclaimer: Inadvertent spelling and grammatical errors are likely due to EHR/dictation software use and do not reflect on the overall quality of patient care. Also, please note that the electronic time recorded on this note does not necessarily reflect the actual time of the patient encounter. Departure Diagnosis: Primary Impression: Acute renal insufficiency Additional Impression: Abdominal pain Condition: Stable RICHARD WESTFALL MD March 09, 2019 15:49
[2019-03-09 17:25] VITALS: Ht 177.8 cm; Wt 74.4 kg
[2019-03-09 17:30] VITALS: BP 124/76; PULSE 92; RESP 18
[2019-03-09] MEDS ORDERED: OCULAR LUBRICANT 3.5 GM OPH OINT BOTH EYES PRN (17:30)
[2019-03-09] MEDS ORDERED: ONDANSETRON (ODT) 4 MG TAB ODT PRN (17:30)
[2019-03-09] MEDS ORDERED: oxyCODONE 15 MG TAB PO PRN (17:30)
[2019-03-09] MEDS: morphine 2 MG INJ IV PRN ×2 (19:03→23:16)
[2019-03-09] MEDS: DEXTROSE 5%-0.9% NACL 1,000 ML IV SCH (20:12)
[2019-03-09 20:30] VITALS: BP 120/77; PULSE 83; RESP 18
[2019-03-10 02:30] VITALS: BP 127/86; PULSE 73; RESP 18
[2019-03-10] MEDS: morphine 2 MG INJ IV PRN ×3 (03:22→23:34)
[2019-03-10] MEDS: DEXTROSE 5%-0.9% NACL 1,000 ML IV SCH ×3 (07:00→23:33)
[2019-03-10 07:55] VITALS: BP 131/83; PULSE 69; RESP 18
[2019-03-10] MEDS: ENOXAPARIN 30 MG/0.3 ML SYG SC SCH (09:00)
--- NOTE | 2019-03-10 11:21 | PN ---
Date/Time of Note Date/Time of Note DATE: 03/10/19 TIME: 11:11 Assessment/Plan VTE Prophylaxis Risk score (from Ns)>0 risk: 6 SCD applied (from Ns): No SCD contraindicated: patient refusal Pharmacological prophylaxis: LMWH Lines/Catheters IV Catheter Type (from Nrsg): Peripheral IV Assessment/Plan Assessment/Plan abd pain. h/o pancreatitis. currently no pancreatitis by labs. lipase is normal. pt having nausea and on liquid diet currently. - will start ppi -changed oxy to morphine im til iv accessed arf- due to n/v dehydration. during the night lost iv access. pt not allow nurse to try for new source. refused blood draw today. pt must get labs first. if the cr is worse and no iv access then will get picc. bells palsy with facial muscle weakness. no ext weakness. refused lovenox get bmp Result Diagram: 03/09/19 1555 03/09/19 1555 Results 24hrs Laboratory Tests Test 03/09/19 15:55 White Blood Count 6.5 Red Blood Count 6.49 #H Hemoglobin 18.0 # Hematocrit 55.5 #H Mean Corpuscular Volume 85.5 Mean Corpuscular Hemoglobin 27.7 L Mean Corpuscular Hemoglobin Concent 32.4 Red Cell Distribution Width 16.7 H Platelet Count 250 Mean Platelet Volume 10.6 H Immature Granulocytes % 0.300 Segmented Neutrophils % (Manual) 61 Lymphocytes % (Manual) 16 Monocytes % (Manual) 22 H Eosinophils % (Manual) 1 Nucleated Red Blood Cells % 0.0 Immature Granulocytes # 0.020 Lymphocytes (Manual) 1.0 Monocytes # (Manual) 1.4 H Platelet Estimate NORMAL Poikilocytosis 1+ Anisocytosis 1+ Macrocytosis 1+ Prothrombin Time 13.3 Prothrombin Time Ratio 1.0 INR International Normalized Ratio 1.00 Activated Partial Thromboplast Time 28.6 Urine Color JOSIAH Urine Clarity CLOUDY A Urine pH 5.0 Urine Specific [place] 1.018 Urine Ketones TRACE A Urine Nitrite NEGATIVE Urine Bilirubin NEGATIVE Urine Urobilinogen NEGATIVE Urine Leukocyte Esterase NEGATIVE Urine Microscopic RBC 26 H Urine Microscopic WBC 8 H Urine Bacteria FEW A Urine Mucus FEW A Urine Hemoglobin 2+ H Urine Glucose NEGATIVE Urine Total Protein 2+ H Sodium Level 142 Potassium Level 4.0 Chloride Level 95 L Carbon Dioxide Level 35 H Anion Gap 12 Blood Urea Nitrogen 32 H Creatinine 2.33 H Est Glomerular Filtrat Rate mL/min 34 L Glucose Level 97 Calcium Level 10.5 H Total Bilirubin 0.7 Direct Bilirubin 0.00 Indirect Bilirubin 0.7 Aspartate Amino Transf (AST/SGOT) 29 Alanine Aminotransferase (ALT/SGPT) 19 Alkaline Phosphatase 130 H Troponin I < 0.012 Total Protein 9.9 H Albumin 4.5 Globulin 5.40 H Albumin/Globulin Ratio 0.83 Lipase 162 Subjective 24 Hr Interval Summary Free Text/Dictation pt admitted for abd pain. labs normal. lipase normal. refused lovenox refuse po oxycontin. says that it made him possible itchy when taking at home and wants morphine refusing labs because it will hurt and alot of the times he is a hard stick so wants to wait until he gets a picc line Exam/Review of Systems Exam Vitals Vital Signs Date Temp Pulse Resp B/P (MAP) Pulse Ox O2 O2 Flow FiO2 Time Delivery Rate 03/10/19 97.8 69 18 131/83 98 Room Air 07:55 (99) Intake and Output 03/09/19 03/09/19 03/10/19 1515:00 23:00 07:00 IntakeIntake Total 250 ml 960 ml OutputOutput Total 150 ml BalanceBalance 250 ml 810 ml Results Results 24hrs Laboratory Tests Test 03/09/19 15:55 White Blood Count 6.5 Red Blood Count 6.49 #H Hemoglobin 18.0 # Hematocrit 55.5 #H Mean Corpuscular Volume 85.5 Mean Corpuscular Hemoglobin 27.7 L Mean Corpuscular Hemoglobin Concent 32.4 Red Cell Distribution Width 16.7 H Platelet Count 250 Mean Platelet Volume 10.6 H Immature Granulocytes % 0.300 Segmented Neutrophils % (Manual) 61 Lymphocytes % (Manual) 16 Monocytes % (Manual) 22 H Eosinophils % (Manual) 1 Nucleated Red Blood Cells % 0.0 Immature Granulocytes # 0.020 Lymphocytes (Manual) 1.0 Monocytes # (Manual) 1.4 H Platelet Estimate NORMAL Poikilocytosis 1+ Anisocytosis 1+ Macrocytosis 1+ Prothrombin Time 13.3 Prothrombin Time Ratio 1.0 INR International Normalized Ratio 1.00 Activated Partial Thromboplast Time 28.6 Urine Color JOSIAH Urine Clarity CLOUDY A Urine pH 5.0 Urine Specific [place] 1.018 Urine Ketones TRACE A Urine Nitrite NEGATIVE Urine Bilirubin NEGATIVE Urine Urobilinogen NEGATIVE Urine Leukocyte Esterase NEGATIVE Urine Microscopic RBC 26 H Urine Microscopic WBC 8 H Urine Bacteria FEW A Urine Mucus FEW A Urine Hemoglobin 2+ H Urine Glucose NEGATIVE Urine Total Protein 2+ H Sodium Level 142 Potassium Level 4.0 Chloride Level 95 L Carbon Dioxide Level 35 H Anion Gap 12 Blood Urea Nitrogen 32 H Creatinine 2.33 H Est Glomerular Filtrat Rate mL/min 34 L Glucose Level 97 Calcium Level 10.5 H Total Bilirubin 0.7 Direct Bilirubin 0.00 Indirect Bilirubin 0.7 Aspartate Amino Transf (AST/SGOT) 29 Alanine Aminotransferase (ALT/SGPT) 19 Alkaline Phosphatase 130 H Troponin I < 0.012 Total Protein 9.9 H Albumin 4.5 Globulin 5.40 H Albumin/Globulin Ratio 0.83 Lipase 162 Medications Medication Current Medications Ondansetron HCl (Zofran Inj) 4 mg BRIDGE ORDER PRN IV NAUSEA/VOMITING; Start 03/09/19 at 15:30; Stop 03/10/19 at 15:29 Acetaminophen (Tylenol Tab) 650 mg ER BRIDGE PRN PO .MILD PAIN 1-3 OR TEMP; Start 03/09/19 at 15:30; Stop 03/10/19 at 15:29 Ondansetron HCl (Zofran Odt) 4 mg Q6H PRN ODT NAUSEA AND/OR VOMITING; Start 03/09/19 at 17:30 Eye Lubricant (Akwa Oint) 1 applic PRN PRN BOTH EYES DRY EYES Last administered on 03/09/19at 22:06; Admin Dose 1 APPLIC; Start 03/09/19 at 17:30 Enoxaparin Sodium (Lovenox) 30 mg DAILY SC ; Start 03/10/19 at 09:00 Clonidine (Catapres) 0.1 mg TID PRN PO SBP >170; Start 03/09/19 at 17:30 Morphine Sulfate (morphine) 2 mg Q4H PRN IV SEVERE PAIN LEVEL 7-10 Last administered on 03/10/19at 03:22; Admin Dose 2 MG; Start 03/09/19 at 18:00 Dextrose/Sodium Chloride 1,000 ml @ 80 mls/hr [id number] IV Last administered on 03/09/19at 20:12; Admin Dose 80 MLS/HR; Start 03/09/19 at 18:30 Pantoprazole (Protonix Tab) 40 mg DAILY@06 PO ; Start 03/11/19 at 06:00 HERBIE ORTIZ MD March 10, 2019 11:21
[2019-03-10] MEDS ORDERED: morphine 2 MG INJ IM PRN (11:30)
[2019-03-10 14:00] VITALS: BP 133/82; PULSE 73; RESP 16
[2019-03-10 20:00] VITALS: BP 141/88; PULSE 76; RESP 18
[2019-03-11 02:00] VITALS: BP 157/91; PULSE 78; RESP 17
[2019-03-11] MEDS: morphine 2 MG INJ IV PRN ×2 (05:51→11:33)
[2019-03-11] MEDS ORDERED: PANTOPRAZOLE (EC) 40 MG TAB PO SCH (06:00)
[2019-03-11 08:15] VITALS: BP 157/89; PULSE 66; RESP 17
[2019-03-11] MEDS: ENOXAPARIN 30 MG/0.3 ML SYG SC SCH (09:00)
--- NOTE | 2019-03-11 11:08 | DS ---
Date/Time of Note Date/Time of Note DATE: 03/11/19 TIME: 11:03 Discharge Summary Admission/Discharge Info Admit Date/Time March 09, 2019 at 15:13 Discharge Date/Time 03/11/19 Patient Condition: Good Hx of Present Illness pt came in with n/v c/o possible pancreatitis exacerbation. lft and lipase normal. cr elevate. pt was rehydrated. pt requesting only iv morphine. started to take po intake. all vitals stable. pt requesting d/c home due to court case in the morning. d/c home pt has oxycontin at home. no new meds were started. abd pain. h/o pancreatitis. currently no pancreatitis by labs. lipase is normal. pt having nausea and on liquid diet currently. - will start ppi -changed oxy to morphine im til iv accessed arf- due to n/v dehydration. during the night lost iv access. pt not allow nurse to try for new source. refused blood draw today. pt must get labs first. if the cr is worse and no iv access then will get picc. labs draw that day and cr went from 2.3 to 1.6. picc line not placed. pt refused am labs. bells palsy with facial muscle weakness. no ext weakness. [facility] Course same as above Home Meds Active Scripts Methylprednisolone* (Medrol* DOSE PACK) 4 Mg/Dose-Pack Tab.ds.pk, 4 MG PO . DIRECTED, #1 PACKET Prov:ROSIE RIVERAS Mundo. DO 02/25/19 Mineral Oil/Lanolin Oil (Lacri-Lube) 3.5 Gm Oint, 1 APPLIC BOTH EYES NEEDED PRN for DRY EYES, #1 EA Prov:NIKI RIVERASTOLOS A. DO 02/25/19 valAcyclovir Hcl* (valACYclovir Hcl*) 500 Mg Tablet, 1000 MG PO BID for 7 Days, TAB Prov:NIKI RIVERASTOLOS A. DO 02/25/19 Carvedilol* (Carvedilol*) 25 Mg Tablet, 25 MG PO BID for 30 Days, #60 TAB Prov:HERBIE ORTIZ MD 04/30/18 Prochlorperazine* (Prochlorperazine*) 10 Mg Tablet, 5 MG PO Q6 PRN for NAUSEA AND/OR VOMITING, #20 TAB Prov:FLOYD,VIOLETTA MD 03/31/18 Ondansetron (Ondansetron Odt) 4 Mg Tab.rapdis, 4 MG PO Q6H PRN for NAUSEA AND/OR VOMITING, #20 TAB Prov:VIOLETTA BARRIENTOS MD 03/31/18 Reported Medications Oxycodone Hcl* (IR) (Oxycodone Hcl*) 30 Mg Tablet, 30 MG PO Q4H PRN for PAIN, TAB 04/06/18 Follow-up Plan f/u dr lr in next 2 weeks. Primary Care Provider Maci Lr MD Time spent on discharge: < 30 minutes Pending Labs Laboratory Tests Test 03/10/19 13:02 White Blood Count 5.5 10^3/ul (4.8-10.8) Red Blood Count 6.35 10^6/ul (4.70-6.10) Hemoglobin 17.8 g/dl (14.0-18.0) Hematocrit 55.1 % (42.0-52.0) Mean Corpuscular Volume 86.8 fl (82.0-101.0) Mean Corpuscular Hemoglobin 28.0 pg (29.0-33.0) Mean Corpuscular Hemoglobin Concent 32.3 g/dl (32.0-37.0) Red Cell Distribution Width 16.4 % (11.5-14.5) Platelet Count 225 10^3/UL (140-415) Mean Platelet Volume 10.9 fl (7.4-10.4) Immature Granulocytes % 0.400 % (0.001-0.429) Neutrophils % 52.9 % (39.0-77.0) Lymphocytes % 28.6 % (15.0-51.0) Monocytes % 15.0 % (0.0-11.0) Eosinophils % 2.2 % (0.0-7.0) Basophils % 0.9 % (0.0-2.0) Nucleated Red Blood Cells % 0.4 /100WBC (0.0-0.0) Immature Granulocytes # 0.020 10^3/ul (0.0-0.031) Neutrophils # 2.9 10^3/ul (1.6-7.5) Lymphocytes # 1.6 10^3/ul (0.8-2.9) Monocytes # 0.8 10^3/ul (0.3-0.9) Eosinophils # 0.1 10^3/ul (0.0-0.5) Basophils # 0.1 10^3/ul (0.0-0.1) Nucleated Red Blood Cells # 0.0 10^3/ul (0.0-0.0) Sodium Level 141 mmol/L (135-144) Potassium Level 4.7 mmol/L (3.5-5.1) Chloride Level 102 mmol/L (97-110) Carbon Dioxide Level 28 mmol/L (21-31) Anion Gap 11 (5-13) Blood Urea Nitrogen 22 mg/dl (7-20) Creatinine 1.65 mg/dl (0.61-1.24) Est Glomerular Filtrat Rate mL/min 51 mL/min (>60) Glucose Level 110 mg/dl (70-220) Calcium Level 9.5 mg/dl (8.4-10.2) HERBIE ORTIZ MD March 11, 2019 11:08
--- NOTE | 2019-03-13 13:27 | HP ---
DATE OF ADMISSION: 03/09/2019 ADMISSION DIAGNOSIS: Abdominal pain. HISTORY OF PRESENT ILLNESS: This is a 64-year-old male who was seen by his private physician, Dr. Chioma chiang, and was then referred to the ER for abdominal pain that has been present for the past 2 days with nausea, vomiting and mild diarrhea. Patient was also recently diagnosed with Jones's palsy and has be en feeling mild weakness, tingles, abdominal discomfort. The patient denies any type of muscle weakn ess. No change of muscle strength one side compared to the next, does report having this right facia l palsy. The patient worried regarding possible recurrence of his pancreatitis. ALLERGIES: BLEOMYCIN. MEDICATIONS: He has been on: 1. Medrol dose. 2. Valacyclovir. 3. Carvedilol 25 mg b.i.d. 4. Prochlorperazine 10 mg p.r.n. 5. Zofran p.r.n. 6. Oxycodone 30 mg q.4 hours p.r.n. pain. FAMILY HISTORY: Noncontributory. PHYSICAL EXAMINATION: HEENT: Normocephalic. Right side facial droop. NECK: No bruit. CARDIOVASCULAR: Regular rate and rhythm. LUNGS: Clear to auscultation. ABDOMEN: Positive bowel sounds. No palpable mass. EXTREMITIES: Lower extremities had no lesions. VITAL SIGNS: Blood pressure 129/88, temperature 97.9, pulse is 83, respirations 17, pulse ox is at 9 9. LABORATORY DATA: Demonstrates a WBC is 6.5, hemoglobin 18.0, platelets 250 with a lipase of less michelle n 162. Troponin was negative. Sodium 142, potassium 4.0, creatinine at 2.33. ASSESSMENT AND PLAN: 1. Gastroenteritis versus abdominal pain secondary to prednisone. We will treat symptomatically at this time. Will place the patient on a liquid diet. Continue his pain medication. Continue proton pump inhibitor. Currently he is afebrile with a normal WBC. Unlikely infection. If the pain worsen s, we can get a CAT scan in the morning. 2. Jones's palsy. There is no lateralization noticed. No muscle weakness as it is symmetrical bilat erally. Lower extremity and upper extremity does not appear to have a type of CVA that occurred. Th e patient was recently diagnosed with this Jones's palsy and still has the facial droop. Dictated By: HERBIE JASMINE/NTS Conf#: [id number] DID#: [id number] CC: NAOMI HALL MD;*EndCC*
== END 2019-03-11 13:50 | disposition home or self-care (01) | DRG 392 ==
LOC: FTE 12:39 → PP2 15:13 → OBSVTOIN 15:13
PROVIDERS: ADMIT Internal Medicine; ATTEND Internal Medicine
DX: R10.9 Unspecified abdominal pain (principal); N28.9 Disorder of kidney and ureter, unspecified; G51.0 Bell's palsy; K52.9 Noninfective gastroenteritis and colitis, unspecified; E86.0 Dehydration
CPT/HCPCS: 36415; 71046; 80048; 80053; 81001; 83690; 84484; 85025; 85610; 85730; 87086; 93005; G0378; J1650; J2270; J2405; J7030; J7040; J7042